=== PATIENT | female | born 1975 | race Caucasian/White ===

== ENCOUNTER 2023-10-11 20:17 | Outpatient (REF) | payer BC, SELFPAY ==
[2023-10-17 11:10] LABS: Age Gdln ACOG Testing Note (.); HPV Aptima Negative (Negative); IGP, Aptima HPV, rfx 16/18,45 Note (.)
== END 2023-10-11 20:18 | disposition home or self-care (01) ==
LOC: LAB 20:17
PROVIDERS: Visit Provider Obstetrics & Gynecology
DX: Z01.419 Encounter for gynecological examination (general) (routine) without abnormal findings (principal)
CPT/HCPCS: 87624; G0145

== ENCOUNTER 2023-12-10 13:57 | Outpatient (OUT) | payer BC, SELFPAY | END 2023-12-10 13:58 | disposition home or self-care (01) | LOC: PST 13:57 | PROVIDERS: Visit Provider Surgery | DX: Z01.818 Encounter for other preprocedural examination (principal); Z12.11 Encounter for screening for malignant neoplasm of colon ==

== ENCOUNTER 2023-12-18 06:18 | Day surgery (SDC) | payer BC, SELFPAY ==
--- OUTSIDE RECORDS SUMMARY | 2023-12-18 06:22 | XMS_ITS | CCD ---
Author Organization [facility] Inform ion Partnership [facility] Care Team Providers Care Sight Effects Specialist Name Role Phone Radha Urbano Primary Care Provider RADHA URBANO Attending Unavailable RADHA URBANO Primary Care Unavailable Radha Urbano Primary Care Provider Radha Urbano Primary Care Provider MD Hilary Cruz Attending Provider Radha Urbano Primary Care Provider Hilary Cruz Attending Unavailable Hilary Cruz Admitting Unavailable ADELIA PAPPAS Attending Unavailable RADHA URBANO Attending Unavailable ADELIA PAPPAS Attending Unavailable JUANITO BRIGGS Attending Unavailable RADHA URBANO Referring Unavailable RADHA URBANO Primary Care Unavailable RADHA URBANO Primary Care Unavailable Problems Active Problems Problem Classification Problem Date Documented Da te Episodic/Chronic Cardiac dysrhythmias (1 source) Palpitations; Translations: [Palpitations] Episodic Conditions associated with dizziness or vertigo (1 source) Dizziness and giddiness; Translations: [Dizziness and giddiness] Episodic Malaise and fatigue (1 source) Fatigue; Translations: [Other fatigue] Episodic Unclassified (1 source) Patient encounter status Unclassified (1 source) Infection following a procedure, superficial incisional surgical site, initial encounter; Translations: [Infection following a procedure, superficial incisional surgical site, initial encounter] Onset: 02-01-2022 Past or Other Problems Problem Classification Problem Date Documented Da te Episodic/Chronic Other screening for suspected conditions (not mental disorders or infectious disease) (3 sources) Patient encounter status; Translations: [Encounter for screening mammogram for malignant neoplasm of breast] Onset: 12-27-2022 Episodic Results Test Name Value Interpretation Reference Range Facility [facility] [place] DIGITAL SCREEN DELVIN Earl 12-28-2022 [facility] [place] DIGITAL SCREEN BILATERAL EXAMINATION: SCREENING DIGITAL BILATERAL MAMMOGRAM WITH TOMOSYNTHESIS, 12/27/2022 TECHNIQUE: Screening mammography was performed with tomosynthesis including MLO and CC views of the bilateral breasts. Computer aided detection was used for the interpretation of this exam. COMPARISON: 02 December 2021; 01 December 2020 HISTORY: Screening. Negative family history of breast cancer. 15 year history of oral contraception. No hormonal replacement therapy or breast interventions. FINDINGS: Breasts are composed of scattered fibroglandular density. No skin thickening, nipple contour changes, suspicious calcifications, suspicious masses, areas of architectural distortion or significant interval changes are noted. IMPRESSION: No evidence of malignancy. Advise annual screening mammography. BI-RADS 1 BIRADS: BIRADS - CATEGORY 1 Negative, no evidence of malignancy. Normal interval follow-up is recommended in 12 months. OVERALL ASSESSMENT - NEGATIVE A letter of notification will be sent to the patient regarding the results. [employer] recommends annual mammograms for women 40 years and older. Interpreted by: Kaitlyn Garay MD Signed by: Kaitlyn Garay MD 12/28/22 Final result Normal [facility] Superficial Wound Cultureon 02-01-2022 Superficial Wound Culture ORGANISM: Staphylococcus aureus (O:STAAUR) Quantity of Growth Rare Growth Aerobic KARINA Charge (PC45) -- SUSCEPTIBILITY - ORGANISM: O:STAAUR ANTIBIOTIC INTERPRETATION KARINA Amoxacillin/K Clavulanate S <4/2 Ampicillin DAKOTA >8 Ampicillin/Sulbactam S <8/4 Azithromycin S <2 Cefazolin S <8 Ceftaroline S <0.5 Ceftriaxone S <8 Ciprofloxacin S <1 Clindamycin S <0.5 Daptomycin S <1 Erythromycin S <0.25 Levofloxacin S <1 Linezolid S <2 Meropenem S <4 Oxacillin S 1 Penicillin DAKOTA >8 Piperacillin/Tazobactam S 8 Rifampin S <1 Tetracycline S <4 Trimethoprim/Sulfametho xazole S <0.5/9.5 Vancomycin S 1 S = SUSCEPTIBLE I = INTERMEDIATE R = RESISTANT BLANK = DATA NOT AVAILABLE, OR DRUG NOT ADVISABLE OR TESTED R* = RESISTANCE DUE TO EXTENDED SPECTRUM BETA-LACTAMASES ESBL = EXTENDED SPECTRUM BETA-LACTAMASE TFG = THYMIDINE-DEPENDENT STRAIN DAKOTA = BETA-LACTAMASE POSITIVE IB = INDUCIBLE BETA-LACTAMASE. APPEARS IN PLACE OF 'S' WITH SPECIES KNOWN TO POSSESS INDUCIBLE BETA-LACTAMASES. POTENTIALLY THEY MAY BECOME RESISTANT TO ALL B-LACTAM DRUGS. PERFORMED BY: [place] [id number] PATHOLOGIST SENIOR WEB ARCHITECT RAMY HU M.D. Normal [facility] Comment on above: Performed By: #### C USUP #### [address] [place] DIGITAL SCREEN BILA TERALOrdered By: Radha Urbano on 12-02-2020 No mammographic evidence of malignancy. BI-RADS 1 BIRADS: BIRADS - CATEGORY 1 Negative, no evidence of malignancy. Normal interval follow-up is recommended in 12 months. OVERALL ASSESSMENT - NEGATIVE A letter of notification will be sent to the patient regarding the results. [employer] recommends annual mammograms for women 40 years and older. [employer] Phone: EXAMINATION: SCREENI NG DIGITAL BILATERAL MAMMOGRAM WITH TOMOSYNTHESIS, 12/01/2020 TECHNIQUE: Screening mammography was performed with tomosynthesis including MLO and CC views of the bilateral breasts. Computer aided detection was used for the interpretation of this exam. COMPARISON: 06/16/2019 HISTORY: Screening. FINDINGS: The breast tissue is composed of scattered fibroglandular tissue. There is no suspicious mass, suspicious microcalcification, or area of architectural distortion. [employer] Phone: [employer] Phone: ECHO Complete 2D W Doppler W ColorOrdered By: Radha Urbano on 09-28-2020 [facility] Transthoracic Echocardiography Report (TTE) Patient Name THOMAS Date of Study 09/28/2020 FRANCHESCA Gaytan Date of 1975 Gender Female Age 44 year(s) Race Room Number Height: 67 inch, 170.18 cm Corporate ID [id number] Weight: 225 pounds, 102.1 kg # Patient Acct [id number] BSA: 2.13 m^2 BMI: 35.24 # kg/m^2 MR # [id number] Home Agent Saira Price Interpreting Physician Jc Antonio Fellow Referring Nurse Radha Urbano, MUSICIAN INSTRUMENTAL Practitioner Interpreting Referring Physician Fellow Type of Study TTE procedure:2D Echocardiogram, M-Mode, Doppler, Color Doppler. Procedure Date Date: 09/28/2020 Start: 08:28 AM Study Location: [facility] Indications:Dizziness. History / Tech. Comments: Dx: dizziness, fatigue, palitations Patient Status: Outpatient Height: 67 inches Weight: 225 pounds BSA: 2.13 m^2 BMI: 35.24 kg/m^2 CONCLUSIONS Summary Global left ventricular systolic function appears preserved with an estimated ejection fraction of 55%. Normal left ventricular wall thickness with a normal left ventricular cavity size. Normal aortic valve structure with trivial aortic regurgitation. Normal tricuspid valve structure with mild tricuspid regurgitation. No previous studies were available for comparison. No significant cardiac cause of dizziness, fatigue, or palpitations was identified from this study. Signature ------- ------- ------- ------- FINDINGS Left Atrium Left atrium is normal in size. Left Ventricle Global left ventricular systolic function appears preserved with an estimated ejection fraction of 55%. Normal left ventricular wall thickness with a normal left ventricular cavity size. Right Atrium Right atrium is normal in size. Right Ventricle Normal right ventricular size and function. Mitral Valve Normal mitral valve structure and function. Aortic Valve Normal aortic valve structure with trivial aortic regurgitation. Tricuspid Valve Normal tricuspid valve structure with mild tricuspid regurgitation. Pulmonic Valve The pulmonic valve is normal in structure. Pericardial Effusion No significant pericardial effusion is seen. Miscellaneous No clear evidence of diastolic dysfunction was identified. Normal aortic root dimension. M-mode / 2D Measurements & Calculations: LVIDd:4.9 cm(3.7 - 5.6 cm) Diastolic Volume:70.95 ml LVIDs:3.15 cm(2.2 - 4.0 cm) Systolic Volume:31.38 ml IVSd:0.92 cm(0.6 - 1.1 cm) Aortic Root:2.61 cm(2.0 - 3.7 cm) LVPWd:0.99 cm(0.6 - 1.1 cm) LA Dimension: 3.93 cm(1.9 - 4.0 cm) Fractional Shortenin.71 % LA volume/Index: 25.8 ml /12m^2 Calculated LVEF (%): 55.77 % AV Cusp Separation: 1.81 cm Mitral: Aortic Valve Area (P1/2-Time): 3.74 cm^2 Peak Velocity: 1.36 m/s Peak E-Wave: 0.99 m/s Mean Velocity: 0.91 m/s Peak A-Wave: 0.75 m/s Peak Gradient: 7.36 mmHg E/A Ratio: 1.33 Mean Gradient: 3.7 mmHg Peak Gradient: 3.92 mmHg Acceleration Time: 93.93 msec P1/2t: 58.75 msec AV VTI: 29.67 cm Tricuspid: Peak TR Velocity: 2.20 m/s Peak TR Gradient: 19.36 mmHg Diastology / Tissue Doppler Lateral Wall E' velocity:0.11 m/s Lateral Wall E/E':7.38 [employer] Phone: Salvatore, Mhpn Incoming Cardio Results From [facility]/Ge - 09/28/2020 12:53 PM EDT [facility] Transthoracic Echocardiography Report (TTE) Patient Name THOMAS Date of Study 09/28/2020 FRANCHESCA Gaytan Date of 1975 Gender Female Age 44 year(s) Race Room Number Height: 67 inch, 170.18 cm Corporate ID [id number] Weight: 225 pounds, 102.1 kg # Patient Acct [id number] BSA: 2.13 m^2 BMI: 35.24 # kg/m^2 MR # [id number] Home Agent Tiago Priceyson Interpreting Physician Jc Antonio Fellow Referring Nurse Radha Urbano CNP Practitioner Interpreting Referring Physician Fellow Type of Study TTE procedure:2D Echocardiogram, M-Mode, Doppler, Color Doppler. Procedure Date Date: 09/28/2020 Start: 08:28 AM Study Location: [facility] Indications:Dizziness. History / Tech. Comments: Dx: dizziness, fatigue, palitations Patient Status: Outpatient Height: 67 inches Weight: 225 pounds BSA: 2.13 m^2 BMI: 35.24 kg/m^2 CONCLUSIONS Summary Global left ventricular systolic function appears preserved with an estimated ejection fraction of 55%. Normal left ventricular wall thickness with a normal left ventricular cavity size. Normal aortic valve structure with trivial aortic regurgitation. Normal tricuspid valve structure with mild tricuspid regurgitation. No previous studies were available for comparison. No significant cardiac cause of dizziness, fatigue, or palpitations was identified from this study. Signature ------ - ------ - ------ - ------ - FINDINGS Left Atrium Left atrium is normal in size. Left Ventricle Global left ventricular systolic function appears preserved with an estimated ejection fraction of 55%. Normal left ventricular wall thickness with a normal left ventricular cavity size. Right Atrium Right atrium is normal in size. Right Ventricle Normal right ventricular size and function. Mitral Valve Normal mitral valve structure and function. Aortic Valve Normal aortic valve structure with trivial aortic regurgitation. Tricuspid Valve Normal tricuspid valve structure with mild tricuspid regurgitation. Pulmonic Valve The pulmonic valve is normal in structure. Pericardial Effusion No significant pericardial effusion is seen. Miscellaneous No clear evidence of diastolic dysfunction was identified. Normal aortic root dimension. M-mode / 2D Measurements & Calculations: LVIDd:4.9 cm(3.7 - 5.6 cm) Diastolic Volume:70.95 ml LVIDs:3.15 cm(2.2 - 4.0 cm) Systolic Volume:31.38 ml IVSd:0.92 cm(0.6 - 1.1 cm) Aortic Root:2.61 cm(2.0 - 3.7 cm) LVPWd:0.99 cm(0.6 - 1.1 cm) LA Dimension: 3.93 cm(1.9 - 4.0 cm) Fractional Shortenin.71 % LA volume/Index: 25.8 ml /12m^2 Calculated LVEF (%): 55.77 % AV Cusp Separation: 1.81 cm Mitral: Aortic Valve Area (P1/2-Time): 3.74 cm^2 Peak Velocity: 1.36 m/s Peak E-Wave: 0.99 m/s Mean Velocity: 0.91 m/s Peak A-Wave: 0.75 m/s Peak Gradient: 7.36 mmHg E/A Ratio: 1.33 Mean Gradient: 3.7 mmHg Peak Gradient: 3.92 mmHg Acceleration Time: 93.93 msec P1/2t: 58.75 msec AV VTI: 29.67 cm Tricuspid: Peak TR Velocity: 2.20 m/s Peak TR Gradient: 19.36 mmHg Diastology / Tissue Doppler Lateral Wall E' velocity:0.11 m/s Lateral Wall E/E':7.38 [employer] Phone: Dermatopathologyon 0 Dermatopathology [facility] Dermatopathology Laboratory [address] [place] [id number] DERMATOPATHOLOGY REPORT Name:FRANCHESCA GUZMAN. Rec #. [id number] Location: [facility] Date of Procedure: 01/12/2020 Race: Date Received: 01/15/2020 /Sex: 1975 (Age: 44) / F Date Reported: 01/16/2020 Other: Submitting Physician:JOE DUMONT PA-C FINAL DIAGNOSIS SKIN, R FOREARM, BIOPSY: COMPOUND NEVUS, PRESENT ON THE DEEP MARGIN. Electronically Signed Out by FARZAD GRAHAM M.D. Electronically Signed Out By FARZAD GRAHAM MD/[facility] By the signature on this report, the individual or group listed as making the Final Interpretation/Diagnosi s certifies that they have reviewed this case. Clinical History: 0.6 x 0.6 cm. Atypical Nevus. Biopsy. Specimens Submitted As: A: SKIN, R FOREARM Gross Description: Received in formalin is one [place]-brown piece of skin measuring [id number]. The specimen is inked and embedded in toto. [facility]/01/15/2020 Microscopic Description: Microscopic analysis shows a symmetric proliferation of melanocytes in epidermis and dermis. Melanocytes nest regularly along the dermal-epidermal junction, and dermal melanocytes mature with increasing depth in dermis. The melanocytes show no cytologic atypia. Normal [facility] Comment on above: Performed By: #### D #### Dermatopathology [facility] DIGITAL DIAGNOSTIC W OR WO CAD RIGHTOrdered By: Adela Bejarano on 06-27-2019 Summation artifact accounts for the focal asymmetry seen at screening. No follow-up is recommend. BIRADS: BIRADS - CATEGORY 1 Negative, no evidence of malignancy. Normal interval follow-up is recommended in 12 months. OVERALL ASSESSMENT - NEGATIVE A letter of notification will be sent to the patient regarding the results. [employer] recommends annual mammograms for women 40 years and older. [employer] Phone: EXAMINATION: DIAGNOS TIC DIGITAL RIGHT BREAST MAMMOGRAM 06/27/2019 TECHNIQUE: Diagnostic mammography of the right breast was performed with tomosynthesis. Computer aided detection was utilized in the interpretation of this exam. VIEWS: Right ML, right spot CC, right spot MLO COMPARISON: 06/16/2019 HISTORY: Focal asymmetry in the right breast at baseline screening FINDINGS: The breast is almost entirely fatty. Asymmetries seen laterally and slightly superiorly at anterior to mid depth disperse into glandular tissue with spot compression and have no correlates on the ML view. No new dominant masses, suspicious calcifications, nor areas of architectural distortion are seen. Tomosynthesis images demonstrate no suspicious abnormality. [employer] Phone: Salvatore, pn Incoming Radiant Results From [employer] - 06/27/2019 9:58 AM EST EXAMINATION: DIAGNOSTIC DIGITAL RIGHT BREAST MAMMOGRAM 06/27/2019 TECHNIQUE: Diagnostic mammography of the right breast was performed with tomosynthesis. Computer aided detection was utilized in the interpretation of this exam. VIEWS: Right ML, right spot CC, right spot MLO COMPARISON: 06/16/2019 HISTORY: Focal asymmetry in the right breast at baseline screening FINDINGS: The breast is almost entirely fatty. Asymmetries seen laterally and slightly superiorly at anterior to mid depth disperse into glandular tissue with spot compression and have no correlates on the ML view. No new dominant masses, suspicious calcifications, nor areas of architectural distortion are seen. Tomosynthesis images demonstrate no suspicious abnormality. IMPRESSION: Summation artifact accounts for the focal asymmetry seen at screening. No follow-up is recommend. BIRADS: BIRADS - CATEGORY 1 Negative, no evidence of malignancy. Normal interval follow-up is recommended in 12 months. OVERALL ASSESSMENT - NEGATIVE A letter of notification will be sent to the patient regarding the results. [employer] recommends annual mammograms for women 40 years and older. [employer] Phone: [facility] DIGITAL SCREEN W OR WO C AD BILATERALOrdered By: Adela Bejarano on 06-16-2019 Focal asymmetry oute r central right breast requiring additional mammographic workup. Full workup may require ultrasonography. BI-RADS 0 BIRADS: BIRADS - CATEGORY 0 Additional imaging is recommended at this time. OVERALL ASSESSMENT - INCOMPLETE:NEED ADDITIONAL IMAGING EVALUATION. [employer] Phone: EXAMINATION: BILATER AL DIGITAL SCREENING MAMMOGRAM, 06/16/2019 TECHNIQUE: CC and MLO views of the left and right breasts were obtained. Computer aided detection was utilized in the interpretation of this exam. 3D tomosynthesis images were obtained. COMPARISON: None. Baseline study. HISTORY: Screening. Negative family history of breast cancer. Oral contraceptive usage x7 years. No prior breast interventions. FINDINGS: The breasts are composed of scattered fibroglandular densities. A focal asymmetry is present in the outer central right breast middle depth with additional mammographic workup advised. Full workup may require ultrasonography. No skin thickening, nipple contour changes, or malignant type microcalcifications are noted. [employer] Phone: Salvatore, Mhpn Incoming Radiant Results From [employer] - 06/16/2019 6:12 PM EST EXAMINATION: BILATERAL DIGITAL SCREENING MAMMOGRAM, 06/16/2019 TECHNIQUE: CC and MLO views of the left and right breasts were obtained. Computer aided detection was utilized in the interpretation of this exam. 3D tomosynthesis images were obtained. COMPARISON: None. Baseline study. HISTORY: Screening. Negative family history of breast cancer. Oral contraceptive usage x7 years. No prior breast interventions. FINDINGS: The breasts are composed of scattered fibroglandular densities. A focal asymmetry is present in the outer central right breast middle depth with additional mammographic workup advised. Full workup may require ultrasonography. No skin thickening, nipple contour changes, or malignant type microcalcifications are noted. IMPRESSION: Focal asymmetry outer central right breast requiring additional mammographic workup. Full workup may require ultrasonography. BI-RADS 0 BIRADS: BIRADS - CATEGORY 0 Additional imaging is recommended at this time. OVERALL ASSESSMENT - INCOMPLETE:NEED ADDITIONAL IMAGING EVALUATION. [facility] Work Phone: Encounters Encounter Date Encounter Type Care Provider Facility Start: 01-17-2024 ambulatory RADHA URBANO [facility] Start: 11-07-2023 End: 11-07-2023 ambulatory JUANITO CHESTER Not Available Start: 10-11-2023 End: 10-11-2023 ambulatory ADELIA ELYSE Not Available Start: 07-30-2023 End: 07-30-2023 ambulatory RADHA Vandana JAY Not Available Start: 06-12-2023 End: 06-12-2023 ambulatory ADELIA ELYSE Not Available Start: 12-27-2022 End: 12-29-2022 ambulatory [facility] Start: 02-07-2022 End: 02-07-2022 Subsequent hospital visit by physician Radha Urbano Work Phone: [facility] Start: 02-01-2022 End: 02-01-2022 ambulatory Hilary Cruz Facility:[facility] Start: 02-01-2022 End: 02-01-2022 Departed Referred MD Hilary Cruz Work Phone: [facility] [place] Start: 12-01-2020 End: 12-03-2020 Patient encounter status [facility] Mammography Start: 12-01-2020 End: 12-03-2020 Subsequent hospital visit by physician [facility] Mammography Room At [facility] Mammography Comment on above: Breast cancer screen ing by mammogram; Routine medical exam Start: 09-28-2020 End: 09-28-2020 Subsequent hospital visit by physician [facility] Echo Room [facility] Echocardiography Comment on above: Fatigue, unspecified type; Dizziness and giddiness; Palpitations Start: 07-15-2020 Patient encounter procedure RADHA URBANO Facility:[facility] Start: 05-17-2020 End: 05-17-2020 Subsequent hospital visit by physician Zeke Covid Screening Schedule [facility] Covid Screening Comment on above: Arrived Start: 06-27-2019 End: 06-29-2019 Subsequent hospital visit by physician Ismael Gen Radiologist [facility] Mammography Comment on above: Abnormal mammogram Start: 06-16-2019 End: 06-18-2019 Subsequent hospital visit by physician Ismael [facility] Mammography Comment on above: Breast cancer screen ing by mammogram Procedures Date Procedure Procedure Detail Performing Clinician Start: 12-01-2020 Screening mammograph y bi 2-view breast inc cad Radha Urbano Work Phone: Start: 09-28-2020 Echo tthrc r-t 2d w/wom-mode compl spec&colr d Radha Urbano Work Phone: Start: 06-27-2019 Tomosynthesis, mammo Ge rri L Rine Work Phone: Start: 06-16-2019 Screening digital br east tomosynthesis bi Adela L Rine Work Phone: Plan of Treatment Date Care Activity Detail Author Start: 02-02-2022 Influenza vaccination Flu vaccine (# 1) [facility] [employer] Start: 02-02-2021 Influenza vaccination M [facility] Work Phone: Start: 12-01-2020 End: 12-01-2020 Patient encounter procedure 12/01/2020 Appointment Radiology [facility] Mammography Start: 02-03-2020 Influenza vaccination Flu vaccine (# 1) [place] [place] Start: 06-27-2019 End: 06-27-2019 Patient encounter procedure [facility] [place] [facility]amm[facility] Start: 02-02-2019 Influenza vaccination Flu vaccine (# 1) [place] Work Phone: Start: 2017 Lipid panel [facility] [employer] Start: 2017 Lipid screen Lipid screen [facility] Work Phone: Start: 12-20-2007 Screening for malignant neoplasm of cervix [facility] [employer] Start: 1998 Cervical cancer screen Cervical cancer screen [employer] Phone: Start: 1998 Screening for malignant neoplasm of cervix [facility] [employer] Start: 1996 DTaP/Tdap/Td vaccine (1 - Tdap) DTaP/Tdap/Td vaccine (1 - Tdap) [facility] [employer] Start: 12-20-1995 Hepatitis C screening Hepatitis C sc reen [facility] [employer] Start: 1993 COVID-19 Vaccine (1) COVID-19 Vaccin e (1) [employer] Phone: Start: 1992 [facility] [employer] Phone: Start: 1992 HIV screening [facility] [employer] Start: 1989 COVID-19 Vaccine (1) COVID-19 Vaccin e (1) [employer] Phone: Start: 1989 Depression Screen Depression Screen [facility] [employer] Start: 1988 DTaP/Tdap/Td vaccine (1 - Tdap) DTaP/Tdap/Td vaccine (1 - Tdap) [employer] Phone: Start: 06-21-1978 COVID-19 Vaccine (#1) COVID-19 Vacci ne (#1) [facility] [employer] Start: 1977 Hepatitis C screening Hepatitis C sc reen [employer] Phone: Aerobic microbial culture Superficial Wound Culture [facility] End: 05-17-2020 Covid-19 Ambulatory Covid-19 Ambulatory Lab Routine Once for 1 Occurrences starting 05/17/2020 until 05/17/2020 [place] [place] Comment on above: Once for 1 Occurrenc es starting 05/17/2020 until 05/17/2020 Covid-19 Ambulatory Covid-19 Amb ulatory Lab Routine 05/17/2020 1:56 PM EST [place] [place] End: 02-07-2022 Culture, Wound [facility] [employer] Phone: Comment on above: Once for 1 Occurrenc es starting 02/07/2022 until 02/07/2022 Echo tthrc r-t 2d w/wo m-mode complete rest&st ECHO REPORT Echocardiography Ordered: 09/28/2020 [employer] Phone: Comment on above: Ordered: 09/28/2020 Payers Date Payer Category Payer Unknown [id number] 2022 Self-pay 2020 Unknown 2019 Unknown BC[place] P PO [id number] 2019-Present [address] [place] [address] [id number] 2019 Unknown [id number] 2017 Unknown [place] P PO xxxxxxxxxxxx 2017-Present [address] [place] [address] xxxxxxxxxxxx [id number] 1975 Unknown [id number] 1975 Unknown [id number] 1975 Unknown [id number] 1975 Unknown [id number] 1977 Unknown [id number] 9 1975 Unknown [id number] 1975 Unknown [id number] Unknown [id number] Social History Date Type Detail Facility Tobacco smoking stat [facility] Unknown if ever smoked [employer] [facility]: Start: 1975 Sex Assigned At Not on file [facility] [place] Phone: Start: 12-01-2020 Tobacco smoking stat [facility] Unknown if ever smoked [employer]: Exposure to SARS-CoV -2 (event) Not sure [place] Start: 1975 Sex Assigned At Female F [facility] History of Present illness Narrative 09-28-2020 Saira Price - 09/28/2020 8:30 AM EDT Note Date & Type Note Facility 09-28-2020 History of Present illness Narrative Explained policies and procedures of an echocardiogram/Doppler study. documented in this encounter [employer]: Evaluation note Note Date & Type Note Facility Evaluation note Diagnosis Fatigue, unspecified type Dizziness and giddiness Palpitations documented in this encounter [employer]: Evaluation note Note Date & Type Note Facility Evaluation note Diagnosis Breast cancer screening by mammogram Routine medical exam Routine general medical examination at a health care facility documented in this encounter [employer]: Evaluation note Note Date & Type Note Facility Evaluation note Diagnosis Breast cancer screening by mammogram documented in this encounter [employer]: Evaluation note Note Date & Type Note Facility Evaluation note Diagnosis Abnormal mammogram Abnormal mammogram, unspecified documented in this encounter [employer]: Evaluation note Note Date & Type Note Facility Evaluation note No assessment information availa [facility] Work Phone: Summary Purpose Family History No Family History Records FoundNo Family History Records FoundNo Family History Records FoundNo Family History Records FoundNo Family History Records FoundNo Family History Records Found Advance Directives No Advanced Directives Records FoundDocuments on File Type Date Recorded Patient Diving Fisher Expl anation ACP-Advance Directive ACP-Power of Head Of Talent Management Documents on File Type Date Recorded Patient Diving Fisher Expl anation ACP-Advance Directive ACP-Power of Head Of Talent Management Documents on File Type Date Recorded Patient Diving Fisher Expl anation Advance Directives and Living Will Power of Head Of Talent Management Advance Directive Response Recorded Date/ Time Advance Directives No February 1:53pm Reason for Referral Status Reason Specialty Diagnoses / Procedures Referre d By Contact Referred To Contact Closed Cardiology Diagnoses Fatigue, unspecified type Dizziness and giddiness Palpitations Procedures ECHO Complete 2D W Doppler W Color Radha Urbano [address] [place] [id number] Status Reason Specialty Diagnoses / Procedures Referred By Contact Referred To Contact Closed Radiology Diagnoses Breast cancer screening by mammogram Routine medical exam Procedures KIMBERLY [place] DIGITAL SCREEN BILATERAL [facility] Radha [address] [place] [address] Status Reason Specialty Diagnoses / Procedures Referred By Contact Referred To Contact Authorized Radiology Diagnoses Breast cancer screening by mammogram Procedures KIMBERLY DIGITAL SCREEN W OR WO CAD BILATERAL Rine, Adela L [address] [place] [address] Status Reason Specialty Diagnoses / Procedures Referred By Contact Referred To Contact Authorized Radiology Diagnoses Abnormal mammogram Procedures KIMBERLY DIGITAL DIAGNOSTIC W OR WO CAD RIGHT Rine, Adela L [address] [place] [address] Chief Complaint and Reason for Visit Chief Complaint [id number] Additional Source Comments INFORMATION SOURCE (unrecogn ized section and content) DATE CREATED AUTHOR 01/17/2020 [facility] DATE CREATED AUTHOR AUTHOR'S ORGANIZ ATION 07/17/2020 [facility] DATE CREATED AUTHOR AUTHOR'S ORGANIZ ATION 02/10/2022 [facility] DATE CREATED AUTHOR AUTHOR'S ORGANIZ ATION 03/05/2022 [facility] DATE CREATED AUTHOR AUTHOR'S ORGANIZ ATION 11/08/2023 [facility] DATE CREATED AUTHOR AUTHOR'S ORGANIZ ATION 12/11/2023 [facility] Reason for Visit (unrecogniz ed section and content) Status Reason Specialty Diagnoses / Procedures Referre d By Contact Referred To Contact Closed Cardiology Diagnoses Fatigue, unspecified type Dizziness and giddiness Palpitations Procedures ECHO Complete 2D W Doppler W Color Radha Urbano [address] [place] [id number] Status Reason Specialty Diagnoses / Procedures Referred By Contact Referred To Contact Open Radiology Diagnoses Encounter for screening mammogram for malignant neoplasm of breast Procedures HC MAMMO SCREENING INCL CAD IF PERF Radha Urbano [address] [place] [phone] [place] [phone] Status Reason Specialty Diagnoses / Procedures Referre d By Contact Referred To Contact Open Radiology Diagnoses Encounter for screening mammogram for malignant neoplasm of breast Procedures HC MAMMO SCREENING INCL CAD IF PERF Rine, Adela L [address] [place] [address] [place] [phone] Status Reason Specialty Diagnoses / Procedures Referre d By Contact Referred To Contact Open Radiology Diagnoses Other abnormal and inconclusive findings on diagnostic imaging of breast Procedures HC MAMMO DGX UNILATERAL INCL CAD IF PERF Rine, Adela L [address] [place] [phone] [place] [phone] Care Teams (unrecognized sec tion and content) Team Status: Inactive Member Role Status Dates Hilary Cruz MD Attending Provider Active Sight Effects Specialist Relationship Specialty Start Date End Date Radha Urbano PCP - General Nurse Practitioner 08/30/18 Goals (unrecognized section and content) Goals may be documented in a n alternate section FOR RECORDS PERTAINING TO PATIENTS WHO ARE OR HAVE BEEN ENROLLED IN A CHEMICAL DEPENDENCY/SUBSTANCEABUSE PROGRAM, SOME INFORMATION MAY BE OMITTED. This clinical summary was aggregated from multiple sources. Caution should be exercised in using it in the provision of clinical care. This summary normalizes information from multiple sources, and as a consequence, information in this document may materially change the coding, format and clinical context of patient data. In addition, data may be omitted in some cases. CLINICAL DECISIONS SHOULD BE BASED ON THE PRIMARY CLINICAL RECORDS. [employer] [facility]. provides no warranty or guarantee of the accuracy or completeness of information in this document.
[2023-12-18 06:30] VITALS: BMI 37.2
[2023-12-18 06:54] LABS: HCG Qualitative NEGATIVE (NEGATIVE); Internal Control Within Normal Limits
[2023-12-18] MEDS: LACTATED RINGER'S SOLUTION 1,000 ML 50 ML IV (07:01)
--- NOTE | 2023-12-18 07:27 | W.PM.PROCNOT ---
Date of procedure: 12/18/23 Pre-op diagnosis: screening colonoscopy Post-op diagnosis: other (polypectomy at 20cm and 10cm ) Procedure: Previous colonoscopy: never procedure: screening colonoscopy The patient was given IV conscious sedation.? The patient's SPO2 remained above 90% throughout the procedure. The colonoscope was inserted per rectum and advanced under direct vision to the cecum without difficulty.? The prep was good.? Findings: Terminal ileum os: normal Cecum/Ascending colon: normal Transverse colon: normal Descending/Sigmoid colon: small subcentimeter polyp removed via biopsy forcep at 20cm Rectum/Anus: examined in normal and retroflexed positions, snare polypectomy at 10cm for a 1cm sized polyp Withdrawal Time was (minutes): 15 The colon was decompressed and the scope was removed.? The patient tolerated the procedure well. Recommendations/Plan: 1.? Lifestyle and dietary modifications as discussed 2.? F/U Biopsies 3.? F/U in 5-10 years for repeat c-scope pending biopsy results 4.? Discussed with the family Anesthesia: MAC Surgeon: Jeff Ventura Estimated blood loss (mL): 3 Pathology: other (2 polyps, one at 20cm and another at 10cm) Condition: stable Disposition: PACU
[2023-12-18 08:05] VITALS: BP 109/64; PULSE 67; O2SAT 98
[2023-12-18 08:20] VITALS: BP 158/97; PULSE 56; O2SAT 100
[2023-12-18 08:45] VITALS: BP 175/98; PULSE 53; O2SAT 100
== END 2023-12-18 08:45 | disposition home or self-care (01) ==
PROVIDERS: Anesthesiology; Visit Provider Surgery
PROC: (CPT 811; principal; 2023-12-18 07:30)
DX: Z12.11 Encounter for screening for malignant neoplasm of colon (principal); D12.5 Benign neoplasm of sigmoid colon; D12.8 Benign neoplasm of rectum
CPT/HCPCS: 45380; 45385; 36415; 84703; 88305; J2704

== ENCOUNTER 2024-10-21 19:22 | Outpatient (REF) | payer BC, SELFPAY ==
--- OUTSIDE RECORDS SUMMARY | 2024-10-21 19:27 | XMS_ITS | CCD ---
Author Organization [facility] Care Team Providers Care Welfare Eligibility Interviewer Name Role Phone Radha Urbano Primary Care Provider RADHA URBANO Attending Unavailable RADHA URBANO Primary Care Unavailable Sundeep Radha Primary Care Provider Sundeep Radha Primary Care Provider [phone] MD Hilary Cruz Attending Provider Radha Urbano Primary Care Provider DO Juanito Ventura Attending Provider Juanito Ventura Attending Unavailable Juanito Ventura Admitting Unavailable RADHA URBANO Primary Care Unavailable SUNDEEP RADHA Referring Unavailable Moi Cabrera DO Primary Care Provider [phone] Sundeep 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Radha Unavailable FRUMOUNA, RADHA E Attending Unavailable SUNDEEP, RADHA E Attending Unavailable ADELIA ARCE Attending Unavailable JUANITO VENTURA Attending Unavailable PRETTY DUMONT Attending Unavailable FRUTH, RADHA E Attending Unavailable FRUTH, RADHA E Attending Unavailable Allergies Allergy Classification Reported Allergen(s) Allergy Type Date of Onset Reaction(s) Facility (14 sources) Cefaclor Drug Allergy 03-20-20 GI intolerance [facility] (14 sources) Doxycycline Drug Allergy 03-20-20 [facility] (14 sources) Sulfamethoxazole Allergy to substance 03-20-20 [facility] (14 sources) Trimethoprim Drug Allergy 03-20-20 [facility] (14 sources) Wound Dressing Adhesive Drug Allergy 03-20-20 21 [facility] Medications Current Medications Medication Drug Class(es) Dates Sig (Normalized) Sig (Original) ALPRAZolam 0.5 mg oral tablet (15 sources) Benzodiazepine Start: 01-28-20 End: 08-24-19 ALPRAZolam (Xanax) 0.5 MG tablet Indications: Caregiver stress Take 1 tablet (0.5 mg) by mouth as needed at bedtime for anxiety 30 tablet 07/24/2024 Active amLODIPine 5 mg oral tablet (13 sources) Dihydropyridine Calcium Channel Lachelle Start: 01-28-20 End: 01-28-20 take 1 tablet by mouth once daily amLODIPine (Norvasc) 5 MG tablet Indications: Essential hypertension (CMS/HCC) Take 1 tablet (5 mg) by mouth Daily 30 tablet 11 01/28/2024 01/27/2025 Active amoxicillin 500 mg oral capsule (1 source) Penicillin-class Antibacterial Start: 07-25-19 End: 08-09-19 take 2 capsules by mouth once in the morning amoxicillin (Amoxil) 500 MG capsule Indications: H pylori ulcer Take 2 capsules (1,000 mg) by mouth in the morning and 2 capsules (1,000 mg) before bedtime. Do all this for 14 days. 56 capsule 07/25/2024 08/08/2024 Active clarithromycin 500 mg oral tablet (1 source) Macrolide Antimicrobial Start: 07-25-19 End: 08-09-19 take 1 tablet by mouth once in the morning clarithromycin (Biaxin) 500 MG tablet Indications: H pylori ulcer Take 1 tablet (500 mg) by mouth in the morning and 1 tablet (500 mg) before bedtime. Do all this for 14 days. 28 tablet 07/25/2024 08/08/2024 Active dextromethorphan hydrobromide 3 mg/ml / promethazine hydrochloride 1.25 mg/ml oral solution (3 sources) Phenothiazine, Uncompetitive P-hmdpxn-W-asparta te Receptor Antagonist, Sigma-1 Agonist Start: 08-13-19 promethazine-dextromet horphan (Phenergan-DM) 6.25-15 MG/5ML syrup Indications: Acute cough Take 5 mL by mouth every 4 (four) hours if needed for cough 240 mL 08/12/2024 Active hydroCHLOROthiazide 12.5 mg oral tablet (10 sources) Thiazide Diuretic Start: 08-21-19 take 1 tablet by mouth once daily hydroCHLOROthiazide (HYDRODiuril) 12.5 MG tablet Indications: Essential hypertension (CMS/HCC) TAKE 1 TABLET BY MOUTH EVERY DAY 90 tablet 1 08/20/2024 Active Start: 02-26-2024 take 1 tablet by obed once daily hydroCHLOROthiazide (HYDRODiuril) 12.5 MG tablet Indications: Essential hypertension (CMS/HCC) Take 1 tablet (12.5 mg) by mouth Daily 90 tablet 1 02/26/2024 Active levonorgestrel 0.442895 mg/hr intrauterine system (20 sources) Progestin, Progestin-containing Intrauterine Device Start: 06-12-2023 Levonorgestrel intrauterine device Levonorgestrel ( Mirena, 52 MG,) 20 MCG/DAY intrauterine device Mirena Active lidocaine 30 mg/ml topical cream (11 sources) Antiarrhythmic, Amide Local Anesthetic Start: 07-31-2023 Lidocaine 3 % cream Indications: Herpes simplex of female genitalia Apply 1 Application topically 4 (four) times a day as needed (pain of genitals) 85 g 1 07/31/2023 Active ondansetron 4 mg disintegrating oral tablet (6 sources) Serotonin-3 Receptor Antagonist Start: 07-24-2024 take 1 tablet by mouth every eight hours for nausea ondansetron ODT (Zofran-ODT) 4 MG disintegrating tablet Indications: Epigastric pain Take 1 tablet (4 mg) by mouth every 8 (eight) hours if needed for nausea or vomiting 60 tablet 07/24/2024 Active pantoprazole 40 mg delayed release oral tablet (6 sources) Proton Pump Inhibitor Start: 07-24-2024 End: 07-24-2025 take 1 tablet by mouth before mealtime pantoprazole (Protonix) 40 MG EC tablet Indications: Epigastric pain Take 1 tablet (40 mg) by mouth in the morning. Take before meals. Do not crush, chew, or split.. 30 tablet 11 07/24/2024 07/24/2025 Active 24 hr phentermine 3.75 mg / topiramate 23 mg extended release oral capsule (6 sources) Sympathomimetic Amine Anorectic Start: 09-20-2023 End: 02-26-2024 take 1 tablet by mouth once daily Phentermine-Topira mate (Qsymia) 3.75-23 MG capsule sustained-release 24 hr Indications: BMI 37.0-37.9, adult Take 1 tablet by mouth Daily 30 capsule 1 09/20/2023 02/26/2024 Discontinued (Therapy completed) predniSONE 20 mg oral tablet (4 sources) Start: 02-27-2024 End: 07-24-2024 predniSONE (Deltasone) 20 MG tablet Indications: Right ear pain Take 3 tablets for 2 days THEN 2 tablets for 2 days THEN 1 tablet for 2 days 12 tablet 02/27/2024 07/24/2024 Discontinued (Therapy completed) sucralfate 1000 mg oral tablet (6 sources) Aluminum Complex Start: 07-24-2024 End: 07-24-2025 take 1 tablet by mouth at bedtime sucralfate (Carafate) 1 g tablet Indications: Epigastric pain Take 1 tablet (1 g) by mouth in the morning and 1 tablet (1 g) at noon and 1 tablet (1 g) in the evening and 1 tablet (1 g) before bedtime. Take before meals. 120 tablet 11 07/24/2024 07/24/2025 Active SUMAtriptan 100 mg oral tablet (14 sources) Serotonin-1b and Serotonin-1d Receptor Agonist Start: 07-30-2023 take 0.5 tablet by mouth once SUMAtriptan (Imitrex) 100 MG tablet Indications: Migraine without aura and without status migrainosus, not intractable (CMS/HCC) Take 0.5 tablets (50 mg) by mouth 1 (one) time if needed for migraine 9 tablet 11 07/30/2023 Active ubrogepant 100 mg oral tablet (14 sources) Start: 09-20-2023 take 1 tablet by mouth once daily as needed Ubrogepant (Ubrelvy) 100 MG tablet Indications: Migraine without aura and without status migrainosus, not intractable (CMS/HCC) Take 1 tablet by mouth Daily as needed (migraine) 10 tablet 3 09/20/2023 Active valACYclovir 500 mg oral tablet (14 sources) Herpesvirus Nucleoside Analog DNA Polymerase Inhibitor, Herpes Simplex Virus Nucleoside Analog DNA Polymerase Inhibitor, Herpes Zoster Virus Nucleoside Analog DNA Polymerase Inhibitor Start: 08-13-2024 take 1 tablet by mouth once daily valACYclovir (Valtrex) 500 MG tablet Indications: Herpes simplex of female genitalia TAKE 1 TABLET BY MOUTH EVERY DAY 90 tablet 08/13/2024 Active Start: 11-19-2023 take 1 tablet by obed th once daily valACYclovir (Valtrex) 500 MG tablet Indications: Herpes simplex of female genitalia Take 1 tablet (500 mg) by mouth Daily 90 tablet 11/19/2023 Active Problems Active Problems Problem Classification Problem Date Documented Da te Episodic/Chronic Abdominal pain (2 sources) Epigastric pain; Translations: [Epigastric pain] 07-24-2024 Episodic Administrative/social admission (4 sources) Caregiver role strain; Translations: [Dependent relative needing care at home] 01-28-2024 Episodic Anxiety disorders (14 sources) Acute stress disorder; Translations: [Acute stress reaction] Onset: 07-30-2023 07-30-2023 Chronic Cardiac dysrhythmias (1 source) Palpitations; Translations: [Palpitations] Episodic Conditions associated with dizziness or vertigo (1 source) Dizziness and giddiness; Translations: [Dizziness and giddiness] Episodic Essential hypertension (4 sources) Essential hypertension; Translations: [Essential (primary) hypertension] 01-28-2024 Chronic Gastroduodenal ulcer (except hemorrhage) (1 source) Peptic ulcer; Translations: [Peptic ulcer, site unspecified, unspecified as acute or chronic, without hemorrhage or perforation] 07-25-2024 Chronic Headache; including migraine (14 sources) Migraine without aura, not refractory ; Translations: [Migraine without aura, not intractable, without status migrainosus] Onset: 07-30-2023 07-30-2023 Chronic Malaise and fatigue (1 source) Fatigue; Translations: [Other fatigue] Episodic Menstrual disorders (14 sources) Amenorrhea; Translations: [Amenorrhea, unspecified] Onset: 07-30-2023 07-30-2023 Chronic Nutritional deficiencies (14 sources) Vitamin D deficiency; Translations: [Vitamin D deficiency, unspecified] Onset: 07-30-2023 07-30-2023 Chronic Other ear and sense organ disorders (1 source) Otalgia, right ear; Translations: [Otalgia, unspecified] 02-27-2024 Episodic Other nutritional; endocrine; and metabolic disorders (14 sources) Obese class I; Translations: [Obesity, unspecified] Onset: 07-30-2023 07-30-2023 Chronic Other nutritional; endocrine; and metabolic disorders (2 sources) Obesity caused by energy imbalance; Translations: [Morbid (severe) obesity due to excess calories] 02-26-2024 Chronic Other nutritional; endocrine; and metabolic disorders (2 sources) Body mass index 30+ - obesity; Translations: [Body mass index (BMI) 37.0-37.9, adult] 02-26-2024 Chronic Other screening for suspected conditions (not mental disorders or infectious disease) (3 sources) Patient encounter status; Translations: [Encounter for screening mammogram for malignant neoplasm of breast] Onset: 01-17-2024 Episodic Residual codes; unclassified (14 sources) Sleep apnea; Translations: [Sleep apnea, unspecified] Onset: 07-30-2023 07-30-2023 Chronic Unclassified (1 source) Patient encounter status Past or Other Problems Problem Classification Problem Date Documented Da te Episodic/Chronic Other connective tissue disease (14 sources) Calcaneal spur of left foot; Translations: [Calcaneal spur, left foot] Onset: 07-30-2023 07-30-2023 Episodic Other connective tissue disease (14 sources) Plantar fascial fibromatosis; Translations: [Plantar fascial fibromatosis] Onset: 07-30-2023 07-30-2023 Episodic Other connective tissue disease (14 sources) Pain in limb; Translations: [Pain in unspecified limb] Onset: 07-30-2023 Resolved: 07-30-2023 07-30-2023 Episodic Other gastrointestinal disorders (14 sources) Constipation; Translations: [Constipation, unspecified] Onset: 07-30-2023 07-30-2023 Episodic Results Test Name Value Interpretation Reference Range Facility [facility] [place] DIGITAL SCREEN SELF REFERRAL W OR WO CAD BILATERALon 01-17-2024 [facility] [place] DIGITAL SCREEN SELF REFERRAL W OR WO CAD BILATERAL EXAMINATION: SCREENING DIGITAL BILATERAL MAMMOGRAM WITH TOMOSYNTHESIS, 01/17/2024 TECHNIQUE: Screening mammography of the bilateral breasts was performed with tomosynthesis. 2D standard and 3D tomosynthesis combination imaging performed through both breasts in the MLO and CC projection. Computer aided detection was utilized in the interpretation of this exam. COMPARISON: 27 December 2022; 02 December 2021 HISTORY: Screening. Negative family history of breast cancer. 17 year history of oral contraception. No hormonal replacement therapy or breast interventions. FINDINGS: Both breasts are composed of scattered fibroglandular density. No [...] to the patient regarding the results. The [employer] recommends annual mammograms for women 40 years and older. Interpreted by: Kaitlyn Garay MD Signed by: Kaitlyn Garay MD 01/17/24 Final result Normal [facility] 12-18-2023 L Specimen: [id number] Received: 12/18/23 Status: RACHAEL Kaur Num: [id number] Spec Type: Surgical Subm Dr: Juanito Ventura DO Tissues: A Colon Biopsy (POLYP 20 CM) B Colon Biopsy (POLYP 12 CM) Procedures: HE/4, Gross/Micro L4/2 Age/ Patient Sex Location Account Attending Physician Jessa Guzman 47/F LABELL [id number] Juanito Ventura DO SPEC NUM: [id number] RECD: 12/18/23 STATUS: RACHAEL KAUR NUM: [id number] MICHAELA: 12/18/[address]: Juanito Ventura DO ENTERED: 12/18/[address] [facility] [address]: Ursula Lisa SPEC TYPE: Surgical DEPT: JAYDEN KOCH ORDERED: HE/4, Gross/Micro L4/2 ORDERED: HE/4, Gross/Micro L4/2 Pathological Diagnosis A, sigmoid polyp biopsy at 20 cm: -Small tubular adenoma B, sigmoid polyp removal at the 12 cm: -Tubulovillous adenoma without obvious high-grade features (advanced adenoma) Clinical Information Sigmoid polyp at 20 cm and 12 cm. Gross Description Received are 2 formalin filled containers each labeled with the patient's name, date of and specific specimen site. A. Further labeled sigmoid polyp 20cm is a 0.3 x 0.3 x 0.1 cm [place] polypoid tissue fragment, entirely submitted in A1. B. Further labeled sigmoid polyp 12 cm is a 1.0 x 0.7 x 0.6 cm [place] polypoid tissue fragment. The specimen is inked black along its base, trisected and entirely submitted in B1. Specimen: [id number] Received: 12/18/23 Status: RACHAEL Kaur Num: [id number] Spec Type: Surgical Subm Dr: Juanito Ventura DO Tissues: A Colon Biopsy (POLYP 20 CM) B Colon Biopsy (POLYP 12 CM) Procedures: PRABHU/Sudhir, Gross/Ho L4/2 Patient: Jessa Guzman [id number] (Continued) Specimen: [id number] Received: 12/18/23 (Continued) Signed (signature on file) Jasvir Floyd MD 12/19/231935 Specimen: [id number] Received: 12/18/23 Status: RACHAEL Kaur Num: [id number] Spec Type: Surgical Subm Dr: Juanito Ventura DO Tissues: A Colon Biopsy (POLYP 20 CM) B Colon Biopsy (POLYP 12 CM) Procedures: HE/Sudhir, Gross/Micro L4/2 Patient: Jessa Guzman [id number] (Continued) Specimen: [id number] Received: 12/18/23 (Continued) Microscopic Description Microscopic examinations are performed supporting the above interpretation CPT Codes 08125Y8 Specimen: [id number] Received: 12/18/23 Status: RACHAEL Kaur Num: [id number] Spec Type: Surgical Subm Dr: Juanito Ventura DO Tissues: A Colon Biopsy (POLYP 20 CM) B Colon Biopsy (POLYP 12 CM) Procedures: PRABHU/Sudhir, Angelica/Ho L4/2 Patient: Jessa Guzman [id number] (Continued) Signed (signature on file) Adalberto Floyd MD 12/19/231935 Normal [facility] Superficial Wound Cultureon 02-01-2022 Superficial Wound Culture [...] RESISTANT TO ALL B-LACTAM DRUGS. PERFORMED BY: [place] [address] PATHOLOGIST WOOD HEEL FITTER MACHINE RAMY HU M.D. [facility] Comment on above: Performed By: #### C USUP #### [address] [place] DIGITAL SCREEN BILA TERALOrdered By: Radha Urbano on 12-02-2020 No mammographic evidence of malignancy. BI-RADS 1 BIRADS: BIRADS - CATEGORY 1 Negative, no evidence of malignancy. Normal interval follow-up is recommended in 12 months. OVERALL ASSESSMENT - NEGATIVE A letter of notification will be sent to the patient regarding the results. The [employer] recommends annual mammograms for women 40 years and older. [employer] Phone: EXAMINATION: SCREENI NG DIGITAL BILATERAL MAMMOGRAM WITH TOMOSYNTHESIS, 12/01/2020 TECHNIQUE: Screening mammography was performed with tomosynthesis including MLO and CC views of the bilateral breasts. Computer aided detection was used for the interpretation of this exam. COMPARISON: 06/16/2019 HISTORY: Screening. FINDINGS: The breast tissue is composed of scattered fibroglandular tissue. There is no suspicious mass, suspicious microcalcification, or area of architectural distortion. [employer] Phone: [employer] Phone: ECHO Complete 2D W Doppler W ColorOrdered By: Radha Urbano on 09-28-2020 [facility] Transthoracic Echocardiography Report (TTE) Patient Name THOMAS Date of Study 09/28/2020 JESSA Gaytan Date of 1975 Gender Female Age 44 year(s) Race Room Number Height: 67 inch, 170.18 cm Corporate ID [id number] Weight: 225 pounds, 102.1 kg # Patient Acct [id number] BSA: 2.13 m^2 BMI: 35.24 # kg/m^2 MR # [id number] Quarantine InspectorSaira Kaplan Interpreting Physician Jc Antonio Fellow Referring Nurse Radha Urbano, SPORTS INTERN Practitioner Interpreting Referring Physician Fellow Type of Study TTE procedure:2D Echocardiogram, M-Mode, Doppler, Color Doppler. Procedure Date Date: 09/28/2020 Start: 08:28 AM Study Location: [facility] Indications:Dizziness. History / Tech. Comments: [...] Wall E' velocity:0.11 m/s Lateral Wall E/E':7.38 [employer] Phone: Salvatore, Mhpn Incoming Cardio Results From [facility] - 09/28/2020 12:53 PM EDT [facility] Transthoracic Echocardiography Report (TTE) Patient Name THOMAS Date of Study 09/28/2020 JESSA Gaytan Date of 1975 Gender Female Age 44 year(s) Race Room Number Height: 67 inch, 170.18 cm Corporate ID [id number] Weight: 225 pounds, 102.1 kg # Patient Acct [id number] BSA: 2.13 m^2 BMI: 35.24 # kg/m^2 MR # [id number] Quarantine Inspector DeeSiara Interpreting Physician Jc Antonio Fellow Referring Nurse Radha Urbano, SPORTS INTERN Practitioner Interpreting Referring Physician Fellow Type of Study TTE procedure:2D Echocardiogram, M-Mode, Doppler, Color Doppler. Procedure Date Date: 09/28/2020 Start: 08:28 AM Study Location: [facility] Indications:Dizziness. History / Tech. Comments: [...] Wall E' velocity:0.11 m/s Lateral Wall E/E':7.38 [employer] Phone: Dermatopathologyon 0 Dermatopathology [facility] Dermatopathology Laboratory [address] [place] [id number] DERMATOPATHOLOGY REPORT Name:JESSA GUZMAN Brittaney Med. Rec #. [id number] Location: [facility] Date of Procedure: 01/12/2020 Race: Date Received: 01/15/2020 /Sex: 1975 (Age: 44) / F Date Reported: 01/16/2020 Other: Submitting Physician:PRETTY DUMONT PA-C FINAL DIAGNOSIS SKIN, R FOREARM, BIOPSY: COMPOUND NEVUS, PRESENT ON THE DEEP MARGIN. Electronically Signed Out by FARZAD GRAHAM M.D. Electronically Signed Out By FARZAD GRAHAM MD/[facility] By the signature on this report, the individual or group listed as making the Final Interpretation/Diagnosi s certifies that they have reviewed this case. Clinical History: 0.6 x 0.6 cm. Atypical Nevus. Biopsy. Specimens Submitted As: A: SKIN, R FOREARM Gross Description: Received in formalin is one [place]-brown piece of skin measuring 3o5m8qo. The specimen is inked and embedded in toto. dcp/01/15/2020 Microscopic Description: Microscopic analysis shows a symmetric proliferation of melanocytes in epidermis and dermis. Melanocytes nest regularly along the dermal-epidermal junction, and dermal melanocytes mature with increasing depth in dermis. The melanocytes show no cytologic atypia. Normal [facility] Comment on above: Performed By: #### D #### Dermatopathology [facility] DIGITAL DIAGNOSTIC W OR WO CAD RIGHTOrdered By: Adela Bejarano on 06-27-2019 Summation artifact accounts for the focal asymmetry seen at screening. No follow-up is recommend. BIRADS: BIRADS - CATEGORY 1 Negative, no evidence of malignancy. Normal interval follow-up is recommended in 12 months. OVERALL ASSESSMENT - NEGATIVE A letter of notification will be sent to the patient regarding the results. The [employer] recommends annual mammograms for women 40 years and older. [employer] Phone: EXAMINATION: DIAGNOS TIC DIGITAL RIGHT BREAST [...] seen. Tomosynthesis images demonstrate no suspicious abnormality. [employer] Phone: Salvatore, Mhpn Incoming Radiant Results From [employer] - 06/27/2019 9:58 AM EST EXAMINATION: DIAGNOSTIC [...] to the patient regarding the results. [employer] recommends annual mammograms for women 40 years and older. [employer] Phone: [facility] DIGITAL SCREEN W OR WO C AD BILATERALOrdered By: Adela Bejarano on 06-16-2019 Focal asymmetry oute r central right breast requiring additional mammographic workup. Full workup may require ultrasonography. BI-RADS 0 BIRADS: BIRADS - CATEGORY 0 Additional imaging is recommended at this time. OVERALL ASSESSMENT - INCOMPLETE:NEED ADDITIONAL IMAGING EVALUATION. [employer] Phone: EXAMINATION: BILATER AL DIGITAL SCREENING MAMMOGRAM, [...] changes, or malignant type microcalcifications are noted. [employer] Phone: Salvatore, Mhpn Incoming Radiant Results From [employer] - 06/16/2019 6:12 PM EST EXAMINATION: BILATERAL [...] OVERALL ASSESSMENT - INCOMPLETE:NEED ADDITIONAL IMAGING EVALUATION. [employer] Work Phone: Vital Signs Date Time Vital Sign Value Performing Clinician Pawan [facility] 10-21-2024 10:56-0400 Body mass index (BMI) [Ratio] 33.36 kg/m2 [employer] Work Phone: [facility] [employer] 10-21-2024 10:56-0400 Body weight 96.62 kg [employer] Phone: [facility] [employer] 10-21-2024 10:56-0400 Diastolic blood pressure 74 mm[Hg] [employer] Work Phone: [facility] [employer] 10-21-2024 10:56-0400 Systolic blood pressure 128 mm[Hg] [employer] Work Phone: [facility] [employer] 07-24-2024 10:01-0500 Body height 170.2 cm Radha Urbano NP Work Phone: [facility] [employer] 07-24-2024 10:01-0500 Body mass index (BMI) [Ratio] 35.08 kg/m2 Radha Urbano NP Work Phone: [facility] [employer] 07-24-2024 10:01-0500 Body temperature 95.79 [degF] Radha Fruth 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 Work Phone: [facility] 07-24-2024 10:01-0500 Body weight 101.61 kg Radha Fruth 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 Work Phone: [facility] 07-24-2024 10:01-0500 Diastolic blood pressure 78 mm[Hg] Radha Fruth 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 Work Phone: [facility] 07-24-2024 10:01-0500 Heart rate 77 /min Radha Fruth 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 Work Phone: [facility] 07-24-2024 10:01-0500 SaO2% (BldA) [Mass fraction] 98 % Radha Fruth 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 Work Phone: [facility] 07-24-2024 10:01-0500 Systolic blood pressure 122 mm[Hg] Radha Fruth 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 Work Phone: [facility] 02-26-2024 09:07-0400 Body height 170.2 cm Radha Fruth 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 Work Phone: [facility] 02-26-2024 09:07-0400 Body mass index (BMI) [Ratio] 37.59 kg/m2 Radha Fruth 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 Work Phone: [facility] 02-26-2024 09:07-0400 Body weight 108.86 kg Radha Fruth 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 Work Phone: [facility] 02-26-2024 09:07-0400 Diastolic blood pressure 100 mm[Hg] Radha Fruth 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 Work Phone: [facility] 02-26-2024 09:07-0400 Heart rate 81 /min Radha Fruth 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 Work Phone: [facility] 02-26-2024 09:07-0400 SaO2% (BldA) [Mass fraction] 98 % Radha Fruth 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 Work Phone: [facility] 02-26-2024 09:07-0400 Systolic blood pressure 130 mm[Hg] Radha Fruth 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 Work Phone: [facility] 01-28-2024 09:28-0400 Body height 170.2 cm Radha Fruth 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 Work Phone: [facility] 01-28-2024 09:28-0400 Body mass index (BMI) [Ratio] 37.75 kg/m2 Radha Fruth 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 Work Phone: [facility] 01-28-2024 09:28-0400 Body weight 109.32 kg Radha Fruth 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 Work Phone: [facility] 01-28-2024 09:28-0400 Diastolic blood pressure 100 mm[Hg] Radha Fruth 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 Work Phone: [facility] 01-28-2024 09:28-0400 Heart rate 95 /min Radha Fruth 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 Work Phone: [facility] 01-28-2024 09:28-0400 SaO2% (BldA) [Mass fraction] 98 % Radha Fruth 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 Work Phone: [facility] Healthcare 01-28-2024 09:28-0400 Systolic blood pressure 140 mm[Hg] Radha Fruth 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 Work Phone: [facility] Healthcare Encounters Encounter Date Encounter Type Care Provider Facility Start: 10-21-2024 End: 10-21-2024 Bamboo flowsheet Adelia Claude DO Work Phone: [facility] Start: 10-21-2024 End: 10-21-2024 Bamboo flowsheet Adelia Claude DO Work Phone: [facility] Start: 10-21-2024 End: 10-21-2024 Patient encounter procedure Adelia Claude DO Work Phone: [facility] Healthcare Start: 10-21-2024 End: 10-21-2024 Periodic preventive med est patient 40-64yrs Adelia Claude DO Work Phone: [facility] Comment on above: Well woman exam with routine gynecological exam Start: 08-12-2024 End: 08-12-2024 ambulatory RADHA E FRUTH Not Available Start: 07-25-2024 End: 07-25-2024 Telephone encounter Radha E Fruth 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 Work Phone: [facility] Comment on above: h pylori infection Start: 07-24-2024 End: 07-24-2024 Bamboo flowsheet Radha E Fruth 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 Work Phone: [facility] Start: 07-24-2024 End: 07-24-2024 Bamboo flowsheet Radha E Fruth 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 Work Phone: [facility] Start: 07-24-2024 End: 07-24-2024 Office outpatient visit 15 minutes Radha E Fruth 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 Work Phone: [facility] Comment on above: Epigastric pain (Helen kaitlyn Dx); Caregiver stress Start: 07-24-2024 End: 07-24-2024 ambulatory RADHA E FRUTH Not Available Start: 02-27-2024 End: 02-27-2024 Telephone encounter Stephany Bautista LPN Other Phone: [facility] Comment on above: Medication Question; ear drops Start: 02-26-2024 End: 02-26-2024 Bamboo flowsheet Radha E Fruth 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 Work Phone: [facility] Start: 02-26-2024 End: 02-26-2024 Bamboo flowsheet Radha E Fruth 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 Work Phone: [facility] Start: 02-26-2024 End: 02-26-2024 ambulatory RADHA E FRUTH Not Available Start: 02-26-2024 End: 02-26-2024 Office outpatient visit 15 minutes Radha E Fruth 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 Work Phone: [facility] Comment on above: Essential hypertensi on (CMS/HCC) (Primary Dx); Morbid (severe) obesity due to excess calories (CMS/HCC); Body mass index (BMI) 37.0-37.9, adult Start: 01-28-2024 End: 01-28-2024 Bamboo flowsheet Radha E Fruth 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 Work Phone: [facility] Start: 01-28-2024 End: 01-28-2024 Bamboo flowsheet Radha Urbano 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 Work Phone: [facility] Start: 01-28-2024 End: 01-28-2024 Patient encounter status Radha Urbano 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 Work Phone: [facility] Work Phone: Start: 01-28-2024 End: 01-28-2024 Periodic preventive med est patient 40-64yrs Radha Urbano 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 Work Phone: [facility] Comment on above: Routine general medi lucina examination at a health care facility (Primary Dx); Essential hypertension (CMS/HCC); Caregiver stress Start: 01-28-2024 End: 01-28-2024 ambulatory RADHA URBANO Not Available Start: 01-17-2024 End: 01-19-2024 [facility]ulatory [facility] Start: 01-07-2024 End: 01-07-2024 ambulatory PRETTY DUMONT Not Available Start: 12-18-2023 End: 12-18-2023 ambulatory Juanito Ventura [facility] Work Phone: Start: 12-18-2023 End: 12-18-2023 Departed Referred DO Juanito Ventura Work Phone: [facility] Start: 11-07-2023 End: 11-07-2023 ambulatory JUANITO VENTURA Not Available Start: 10-11-2023 End: 10-11-2023 ambulatory ADELIA ARCE Not Available Start: 02-07-2022 End: 02-07-2022 Subsequent hospital visit by physician Radha Urbano Work Phone: [facility] Laboratory Start: 02-01-2022 End: 02-01-2022 Departed Referred MD Hilary Cruz Work Phone: [facility] Main [place] Start: 12-01-2020 End: 12-03-2020 [facility] Start: 12-01-2020 End: 12-03-2020 Subsequent hospital visit by physician [facility] Mammography Room At [facility] Mammography Comment on above: Breast cancer screen ing by mammogram; Routine medical exam Start: 09-28-2020 End: 09-28-2020 Subsequent hospital visit by physician [facility] Echo Room [facility] Echocardiography Comment on above: Fatigue, unspecified type; Dizziness and giddiness; Palpitations Start: 07-15-2020 Patient encounter procedure RADHA URBANO Facility:[facility] Start: 05-17-2020 End: 05-17-2020 Subsequent hospital visit by physician Zeke Covid Screening Schedule [facility] Covid Screening Comment on above: Arrived Start: 06-27-2019 End: 06-29-2019 Subsequent hospital visit by physician [facility] Mammography Comment on above: Abnormal mammogram Start: 06-16-2019 End: 06-18-2019 Subsequent hospital visit by physician [facility] Mammography Comment on above: Breast cancer screen ing by mammogram Procedures Date Procedure Procedure Detail Performing Clinician Start: 01-17-2024 Mammography Radha thompson 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 Work Phone: Start: 12-18-2023 Colonoscopy Radha thompson 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 Work Phone: Start: 10-11-2023 Microscopic observat ion [Identifier] in Cervix by Cyto stain Radha Urbano 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 Work Phone: Start: 12-01-2020 Screening mammograph y bi 2-view breast inc cad Radha Urbano Work Phone: Start: 09-28-2020 Echo tthrc r-t 2d w/wom-mode compl spec&colr d Radha Urbano Work Phone: Start: 06-27-2019 Tomosynthesis, mammo Ge rri L [place] Work Phone: Start: 06-16-2019 Screening digital br east tomosynthesis bi Adela L Rine Work Phone: Plan of Treatment Date Care Activity Detail Author Start: 12-17-2033 Screening for malign ant neoplasm of colon [facility] Start: 10-10-2026 Screening for malign ant neoplasm of cervix [facility] Start: 10-27-2025 End: 10-27-2025 Patient encounter procedure 10/27/2025 10:00 AM EDT Office Visit [facility] [address] [place] [address] Melanie Fajardo PA [address] [place], [place] [id number] [facility] Start: 02-02-2025 Influenza vaccination Influenz a Vaccine (Season Ended) [facility] Healthcare Start: 01-16-2025 Screening for malign ant neoplasm of breast Mammogram [facility] Healthcare Start: 01-06-2025 End: 01-06-2025 Patient encounter procedure 01/06/2025 1:20 PM EDT Office Visit [facility] [address] [place] [id number] [place], PA [address] [place] [address] [facility] Start: 12-01-2024 Influenza vaccination Influenza Vacc ine (#1) [facility] Comment on above: Postponed from 02/02 (Patient Refused) Start: 10-21-2024 End: 10-21-2024 Patient encounter procedure 10/21/2024 10:20 AM EDT Office Visit [facility] [address] [place] [address] Adelia Arce, DO [address] [place], [place] [id number] [facility] Start: 10-20-2024 End: 10-20-2024 Patient encounter procedure 10/20/2024 10:00 AM EDT Office Visit [facility] [address] [place] [address] Adelia Arce, DO [address] [place], [place] [id number] [facility] Start: 07-24-2024 End: 07-24-2025 H. pylori breath test H. pylori breath test Lab Routine Epigastric pain Expected: 07/24/2024 (Approximate), Expires: 07/24/2025 [facility] Healthcare Work Phone: Comment on above: Expected: 07/24/2024 (Approximate), Expires: 07/24/2025 Start: 07-24-2024 End: 07-24-2024 Patient encounter procedure 07/24/2024 10:00 AM EST [facility] [address] [place] [phone] Radha Urbano, 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 [address] [place] [address] Arrived [facility] Comment on above: Arrived Start: 04-22-2024 Influenza vaccination Influenza Vacc ine (#1) [facility] Comment on above: Postponed from 02/02 (Patient Refused) Start: 02-26-2024 End: 02-26-2024 Patient encounter procedure 02/26/2024 9:00 AM EDT [facility] [address] [place] [address] Radha Urbano, 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 [address] [place] [address] [facility] Start: 02-03-2024 Influenza vaccination Influenza Vacc ine (#1) [facility] Start: 01-28-2024 End: 01-27-2025 CBC W Auto Differential panel - Blood CBC and differential Lab Routine Routine general medical examination at a health care facility Essential hypertension (CMS/HCC) Expected: 01/28/2024 (Approximate), Expires: 01/27/2025 [facility] Work Phone: Comment on above: Expected: 01/28/2024 (Approximate), Expires: 01/27/2025 Start: 01-28-2024 End: 01-27-2025 Comprehensive metabolic 2000 panel - Serum or Plasma Comprehensive metabolic panel Lab Routine Routine general medical examination at a health care facility Essential hypertension (CMS/HCC) Expected: 01/28/2024 (Approximate), Expires: 01/27/2025 [facility] Healthcare Comment on above: Expected: 01/28/2024 (Approximate), Expires: 01/27/2025 Start: 01-28-2024 End: 01-27-2025 Lipid 1996 panel - Serum or Plasma Lipid panel Lab Routine Routine general medical examination at a health care facility Essential hypertension (CMS/HCC) Expected: 01/28/2024 (Approximate), Expires: 01/27/2025 [facility] Healthcare Comment on above: Expected: 01/28/2024 (Approximate), Expires: 01/27/2025 Start: 01-28-2024 End: 01-27-2025 Microalbumin/Creatinine panel in random Urine Microalbumin / creatinine urine ratio Lab Routine Routine general medical examination at a health care facility Essential hypertension (CMS/HCC) Expected: 01/28/2024 (Approximate), Expires: 01/27/2025 [facility] Healthcare Comment on above: Expected: 01/28/2024 (Approximate), Expires: 01/27/2025 Start: 01-28-2024 End: 01-27-2025 Thyrotropin [Units/volume] in Serum or Plasma TSH Lab Routine Routine general medical examination at a health care facility Essential hypertension (CMS/HCC) Expected: 01/28/2024 (Approximate), Expires: 01/27/2025 [facility] Healthcare Comment on above: Expected: 01/28/2024 (Approximate), Expires: 01/27/2025 Start: 01-28-2024 End: 01-28-2024 Patient encounter procedure 01/28/2024 9:30 AM EDT Office Visit [facility] [address] [place] [id number] Radha Urbano NP [address] [place] [address] Arrived [facility] Comment on above: Arrived Start: 02-02-2022 Influenza vaccination Flu vaccine (# 1) [facility] Start: 02-02-2021 Influenza vaccination [facility] [employer] Work Phone: Start: 12-01-2020 End: 12-01-2020 Patient encounter procedure 12/01/2020 Appointment Radiology [facility] Mammography Start: 02-03-2020 Influenza vaccination Flu vaccine (# 1) [facility] ANTONIO ESCOBEDO Start: 06-27-2019 End: 06-27-2019 Patient encounter procedure [facility]amm[facility] Start: 02-02-2019 Influenza vaccination Flu vaccine (# 1) [employer] Phone: Start: 2017 Lipid panel [facility] Start: 2017 Lipid screen Lipid screen [facility] Work Phone: Start: 12-20-2007 Screening for malign ant neoplasm of cervix [facility] Start: 1998 Cervical cancer screen Cervical canc er screen [facility] [employer] Phone: Start: 1998 Screening for malign ant neoplasm of [facility]ix [facility] Start: 1996 DTaP/Tdap/Td vaccine (1 - Tdap) DTaP/Tdap/Td vaccine (1 - Tdap) [facility] Start: 12-20-1995 Hepatitis C screening Hepatitis C sc reen [facility] Start: 1993 COVID-19 Vaccine (1) COVID-19 Vaccin e (1) [employer] Phone: Start: 1992 HIV screen HIV screen [facility] Work Phone: Start: 1992 HIV screening HIV screen [facility] Start: 1989 COVID-19 Vaccine (1) COVID-19 Vaccin e (1) [employer] Phone: Start: 1989 Depression Screen Depression Screen [facility] Start: 1988 DTaP/Tdap/Td vaccine (1 - Tdap) DTaP/Tdap/Td vaccine (1 - Tdap) [facility] [employer] Phone: Start: 06-21-1978 COVID-19 Vaccine (#1) COVID-19 Vacci ne (#1) [employer] Start: 1977 Hepatitis C screening Hepatitis C sc lillian [employer] Work Phone: Start: 1977 Screening for malign ant neoplasm of colon [facility] Aerobic microbial culture Superficial Wound Culture [facility] End: 05-17-2020 Covid-19 Ambulatory Covid-19 Ambulatory Lab Routine Once for 1 Occurrences starting 05/17/2020 until 05/17/2020 [employer] [place] Comment on above: Once for 1 Occurrenc es starting 05/17/2020 until 05/17/2020 Covid-19 Ambulatory Covid-19 Amb ulatory Lab Routine 05/17/2020 1:56 PM EST [facility] [place] End: 02-07-2022 Culture, Wound MARIA DE JESUS [employer] Phone: Comment on above: Once for 1 Occurrenc es starting 02/07/2022 until 02/07/2022 Echo tthrc r-t 2d w/ wo m-mode complete rest&st ECHO REPORT Echocardiography Ordered: 09/28/2020 [employer] Phone: Comment on above: Ordered: 09/28/2020 THIN PREP TIS PAP AN D HR HPV DNA THIN PREP TIS PAP AND HR HPV DNA Pathology and Cytology Routine Well woman exam with routine gynecological exam Ordered: 10/21/2024 [employer] Work Phone: Comment on above: Ordered: 10/21/2024 Payers Date Payer Category Payer Self-pay [address] [facility] [id number] 2022 Unknown [id number] 2020 Unknown 2019 Unknown BC[place] P PO [id number] 2019-Present [address] [place] [address] [id number] 2019 Unknown [id number] 2017 Unknown [place] P PO xxxxxxxxxxxx 2017-Present [address] [place] [address] xxxxxxxxxxxx [id number] 1977 Unknown [id number] 196 1977 Unknown [id number] 173 1977 Unknown [id number] 9 1977 Unknown [id number] 9 1977 Unknown [id number] [id number] 1977 Unknown [id number] 9 1977 Unknown [id number]. 9 1977 Unknown [id number] 9 1977 Unknown [id number]. 125 Unknown [id number] 531 Social History Date Type Detail Facility [facility] [employer] Phone: Start: 1975 Sex Assigned At Not on file [employer] Phone: Start: 12-01-2020 Tobacco smoking stat [facility] Unknown if ever smoked [employer] Phone: Exposure to SARS-CoV -2 (event) Not sure [employer] Start: 1975 Sex Assigned At Female F [facility] Start: 01-08-2023 Tobacco smoking stat us NHIS Never smoked tobacco [facility] Start: 01-08-2023 Tobacco use and exposure Smoke less tobacco non-user [facility] Start: 01-07-2024 End: 10-21-2024 Alcoholic beverage intake Current drinker of alcohol (finding) [facility] Start: 07-30-2023 End: 01-07-2024 Alcoholic beverage intake [facility] Start: 07-30-2023 End: 07-24-2024 Social connection and isolation panel [facility] Do you belong to any clubs or organizations such as hoahaoism groups, unions, fraternal or athletic groups, or school groups? No [facility] How often do you att end meetings of the clubs or organizations you belong to? Patient declined [facility] Are you now , , , , never or living with a partner? [facility] How often to you hav e a drink containing alcohol? Monthly or less [facility] How many standard dr inks containing alcohol do you have on a typical day? 1 or 2 [facility] How often do you hav e 6 or more drinks on 1 occasion? Never [facility] Do you feel stress - tense, restless, nervous, or anxious, or unable to sleep at night because your mind is troubled all the time - these days [OSQ] Only a little [facility] (I/We) worried wheth er (my/our) food would run out before (I/we) got money to buy more. Never true [facility] Clinical Notes 09-28-2020 to 10-21-2024 ELYSIA Gupta - 10/21/2024 10:20 AM EDTTelephone Encounter - Radha Urbano NP - 07/25/2024 11:00 AM ESTTelephone Encounter - Radha Urbano NP - 07/25/2024 11:00 AM EST Note Date & Type Note Facility 10-21-2024 History of Presen t illness Narrative Reason for Appointment: Patient ID: Jessa Guzman is a 48 y.o. female who presents for Gynecologic Exam Patient presents today for Annual Exam. MEDICATIONS Current Outpatient Medications Medication Instructions ALPRAZolam (XANAX) 0.5 mg, Oral, Nightly PRN amLODIPine (NORVASC) 5 mg, Oral, Daily hydroCHLOROthiazide (HYDRODIURIL) 12.5 mg, Oral, Daily Levonorgestrel (Mirena, 52 MG,) 20 MCG/DAY intrauterine device Mirena ondansetron ODT (ZOFRAN-ODT) 4 mg, Oral, Every 8 hours PRN pantoprazole (PROTONIX) 40 mg, Oral, Daily before breakfast, Do not crush, chew, or split. promethazine-dextromethorphan (Phenergan-DM) 6.25-15 MG/5ML syrup 5 mL, Oral, Every 4 hours PRN sucralfate (CARAFATE) 1 g, Oral, 4 times daily before meals and nightly SUMAtriptan (IMITREX) 50 mg, Oral, Once as needed Ubrogepant (Ubrelvy) 100 MG tablet 1 tablet, Oral, Daily PRN valACYclovir (VALTREX) 500 mg, Oral, Daily ALLERGIES Allergies Allergen Reactions Cefaclor GI intolerance Doxycycline Other Reaction(s): vomiting Sulfamethoxazole Other Reaction(s): Nausea/Vomiting Trimethoprim Other Reaction(s): Nausea/Vomiting Wound Dressing Adhesive Other Reaction(s): Unknown PROBLEMS Active Ambulatory Problems Diagnosis Date Noted Amenorrhea 07/30/2023 Calcaneal spur of left foot 07/30/2023 Constipation 07/30/2023 Migraine without aura and without status migrainosus, not intractable ([facility]) 07/30/2023 Obesity (BMI 30.0-34.9) 07/30/2023 Plantar fascia syndrome 07/30/2023 Sleep apnea in adult 07/30/2023 Stress reaction 07/30/2023 Vitamin D deficiency 07/30/2023 Resolved Ambulatory Problems Diagnosis Date Noted Pain in limb 07/30/2023 Past Medical History: Diagnosis Date Actinic keratoses Atypical nevus of back 02/2021 Hypertension ([facility]) Melanoma ([facility]) 2013 Migraines ([facility]) HISTORY PAST MEDICAL HISTORY SOCIAL HISTORY Past Medical History: Diagnosis Date Actinic keratoses Atypical nevus of back 02/2021 Severely atypical nevus, right back Hypertension ([facility]) Melanoma ([facility]) 2012 right mid back - excision Migraines (CMS/HCC) Pain in limb 07/30/2023 Social History Tobacco Use Smoking status: Never Smokeless tobacco: Never Substance Use Topics Alcohol use: Yes Alcohol/week: 1.0 standard drink of alcohol Types: 1 Standard drinks or equivalent per week Drug use: Never FAMILY HISTORY Family History Adopted: Yes Family history unknown: Yes SURGICAL HISTORY Past Surgical History: Procedure Laterality Date DILATION AND CURETTAGE OF UTERUS REVIEW OF SYSTEMS Review of Systems: Review of Systems Constitutional: Negative. HENT: Negative. Eyes: Negative. Respiratory: Negative. Cardiovascular: Negative. Gastrointestinal: Negative. Genitourinary: Negative. Musculoskeletal: Negative. Skin: Negative. Neurological: Negative. All other systems reviewed and are negative. Hematological: Negative. Endocrine: Negative. Allergic/Immunologic: Negative. OBJECTIVE Objective: Physical Exam Constitutional: Appearance: Normal appearance. Genitourinary: Right Adnexa: not tender and no mass present. Left Adnexa: not tender and no mass present. No cervical discharge. IUD strings visualized. Breasts: Breasts are soft. Right: Normal. Left: Normal. HENT: Head: Normocephalic. Nose: Nose normal. Mouth/Throat: Mouth: Mucous membranes are moist. Cardiovascular: Rate and Rhythm: Normal rate. Pulmonary: Effort: Pulmonary effort is normal. Abdominal: General: Bowel sounds are normal. Palpations: Abdomen is soft. Musculoskeletal: General: Normal range of motion. Cervical back: Normal range of motion. Neurological: General: No focal deficit present. Mental Status: She is alert. Skin: General: Skin is warm and dry. Psychiatric: Mood and Affect: Mood normal. Vitals and nursing note reviewed. Exam conducted with a sewing pattern layout technician present. Vitals: Estimated body mass index is 33.36 kg/m as calculated from the following: Height as of 08/12/24: 5' 7 . Weight as of this encounter: 213 lb. BP: 128/74 No LMP recorded. ASSESSMENT & PLAN ICD-10-CM 1. Well woman exam with routine gynecological exam Z01.419 THIN PREP TIS PAP AND HR HPV DNA Annual Exam: Patient presents today for an annual exam. Patient states she is doing well and has no complaints. Pap was obtained without difficulty. No orders of the defined types were placed in this encounter. Follow Up: Patient is to return in one year for annual unless needed otherwise. Documented by ELYSIA Gupta on behalf of: Adelia Arce DO documented in this encounter [facility] 07-25-2024 Telephone encounter Note + h pylori. Pt aware. Rx sent. [facility] 07-25-2024 Miscellaneous Notes + h pylori. Pt aware. Rx sent. documented in this encounter [facility] 07-24-2024 History of Presen t illness Narrative Images from the original note were not included. Jessa Guzman is a 48 y.o. 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 He passed Sunday and his showing is tomorrow. Pt has been bloated gassy with epigastric pain and no appetite. Bowels at her baseline. Denies black or tarry stools. Denies fever/chills. SUBJECTIVE: MEDICATIONS: Current Outpatient Medications Medication Instructions ALPRAZolam (XANAX) 0.5 mg, Oral, Nightly PRN amLODIPine (NORVASC) 5 mg, Oral, Daily hydroCHLOROthiazide (HYDRODIURIL) 12.5 mg, Oral, Daily Levonorgestrel (Mirena, 52 MG,) 20 MCG/DAY intrauterine device Mirena Lidocaine 3 % cream 1 Application, Apply externally, 4 times daily PRN ondansetron ODT (ZOFRAN-ODT) 4 mg, Oral, Every 8 hours PRN pantoprazole (PROTONIX) 40 mg, Oral, Daily before breakfast, Do not crush, chew, or split. sucralfate (CARAFATE) 1 g, Oral, 4 times daily before meals and nightly SUMAtriptan (IMITREX) 50 mg, Oral, Once as needed Ubrogepant (Ubrelvy) 100 MG tablet 1 tablet, Oral, Daily PRN valACYclovir (VALTREX) 500 mg, Oral, Daily ALLERGIES: Allergies Allergen Reactions Cefaclor GI intolerance Doxycycline Other Reaction(s): vomiting Sulfamethoxazole Other Reaction(s): Nausea/Vomiting Trimethoprim Other Reaction(s): Nausea/Vomiting Wound Dressing Adhesive Other Reaction(s): Unknown SURGICAL HISTORY: Past Surgical History: Procedure Laterality Date DILATION AND CURETTAGE OF UTERUS FAMILY HISTORY: Family History Adopted: Yes Family history unknown: Yes SOCIAL HISTORY: Social History Tobacco Use Smoking status: Never Smokeless tobacco: Never Substance Use Topics Alcohol use: Yes Alcohol/week: 1.0 standard drink of alcohol Types: 1 Standard drinks or equivalent per week Drug use: Never Depression: Not at risk (07/24/2024) PHQ-2 PHQ-2 Score: 0 REVIEW OF SYMPTOMS: Review of Systems Constitutional: Positive for activity change, appetite change and fatigue. Negative for fever. HENT: Negative. Eyes: Negative. Respiratory: Negative. Cardiovascular: Negative. Gastrointestinal: Positive for abdominal distention, abdominal pain, constipation and nausea. Negative for anal bleeding, blood in stool, diarrhea, rectal pain and vomiting. Genitourinary: Negative. Musculoskeletal: Negative. Skin: Negative. Psychiatric/Behavioral: Negative. Hematological: Negative. Endocrine: Negative. Allergic/Immunologic: Negative. OBJECTIVE: Visit Vitals BP 122/78 (BP Location: Left arm, Patient Position: Sitting, BP Cuff Size: Adult) Pulse 77 Temp 95.8 F (Tympanic) Ht 5' 7 Wt 224 lb SpO2 98% BMI 35.08 kg/m Smoking Status Never BSA 2.2 m Physical Exam Constitutional: Appearance: Normal appearance. HENT: Head: Normocephalic and atraumatic. Mouth/Throat: Mouth: Mucous membranes are moist. Pharynx: Oropharynx is clear. Eyes: Extraocular Movements: Extraocular movements intact. Conjunctiva/sclera: Conjunctivae normal. Pupils: Pupils are equal, round, and reactive to light. Cardiovascular: Rate and Rhythm: Normal rate and regular rhythm. Pulses: Normal pulses. Heart sounds: Normal heart sounds. Pulmonary: Effort: Pulmonary effort is normal. Breath sounds: Normal breath sounds. Abdominal: General: Abdomen is flat. There is no distension. Palpations: Abdomen is soft. There is no mass. Tenderness: There is abdominal tenderness. There is guarding. There is no right CVA tenderness, left CVA tenderness or rebound. Hernia: No hernia is present. Comments: Tender epigastric region. Musculoskeletal: General: Normal range of motion. Cervical back: Normal range of motion and neck supple. Right lower leg: No edema. Left lower leg: No edema. Skin: General: Skin is warm and dry. Capillary Refill: Capillary refill takes less than 2 seconds. Neurological: General: No focal deficit present. Mental Status: She is alert and oriented to person, place, and time. Mental status is at baseline. Psychiatric: Mood and Affect: Mood normal. Behavior: Behavior normal. Thought Content: Thought content normal. Judgment: Judgment normal. ASSESSMENT AND PLAN: Assessment/Plan Problem List Items Addressed This Visit None Visit Diagnoses Epigastric pain - Primary Relevant Medications pantoprazole (Protonix) 40 MG EC tablet sucralfate (Carafate) 1 g tablet ondansetron ODT (Zofran-ODT) 4 MG disintegrating tablet Other Relevant Orders H. pylori breath test [place] diet no dairy. Medication as directed. Call with any concerns. Caregiver stress Relevant Medications ALPRAZolam (Xanax) 0.5 MG tablet Discussed how she may benefit from the practices of mindlefullness. Reading resources suggested to her for purchase. Discussed how these techniques reduce stress, as well as improve depression and sleep. Follow up wellness due in january and as needed.. documented in this encounter [facility] 02-27-2024 Telephone encounter Note Pt reports that ear gtts were probably prescribed last fall as this symptoms tends to return yearly. Willing to try steroid, would like sent to [facility] ____ Pt sent mycMysteriot message to provider for ear gtt refill. REF out of the office; [facility] response to pt message : Would NOT recommend using this much drops in one day, keeping that moisture in the ear can cause a fungal ear infection which can be very difficult to treat. Would she like steroid burst for discomfort and one time refill PRESCRIBED for drops? [facility] Healthcare Work Phone: 02-27-2024 Miscellaneous Notes Pt reports that ear gtts were probably prescribed last fall as this symptoms tends to return yearly. Willing to try steroid, [facility] ____ Pt sent mychart message to provider for ear gtt refill. REF out of the office; [facility] response to pt message : Would NOT recommend using this much drops in one day, keeping that moisture in the ear can cause a fungal ear infection which can be very difficult to treat. Would she like steroid burst for discomfort and one time refill PRESCRIBED for drops? documented in this encounter [facility] 02-26-2024 History of Presen t illness Narrative Wellness 01/2024 Pap 10/2023 Labs 01/2024 Mamm 01/2024 Cook Taco- Dr. Arce Repairer Shoe Sticks- Dr. Hui Box Dentist- [facility] Colonscopy 12/2023 repeat in 3 years for polyp Jessa Guzman is a 48 y.o. 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 Not sleeping much so living on caffeine. Denies cp sob edema or palpitations. SUBJECTIVE: MEDICATIONS: Current Outpatient Medications Medication Instructions ALPRAZolam (XANAX) 0.5 mg, Oral, Nightly PRN amLODIPine (NORVASC) 5 mg, Oral, Daily hydroCHLOROthiazide (HYDRODIURIL) 12.5 mg, Oral, Daily Levonorgestrel (Mirena, 52 MG,) 20 MCG/DAY intrauterine device Mirena Lidocaine 3 % cream 1 Application, Apply externally, 4 times daily PRN SUMAtriptan (IMITREX) 50 mg, Oral, Once as needed Ubrogepant (Ubrelvy) 100 MG tablet 1 tablet, Oral, Daily PRN valACYclovir (VALTREX) 500 mg, Oral, Daily ALLERGIES: Allergies Allergen Reactions Cefaclor GI intolerance Doxycycline Other Reaction(s): vomiting Sulfamethoxazole Other Reaction(s): Nausea/Vomiting Trimethoprim Other Reaction(s): Nausea/Vomiting Wound Dressing Adhesive Other Reaction(s): Unknown SURGICAL HISTORY: Past Surgical History: Procedure Laterality Date DILATION AND CURETTAGE OF UTERUS FAMILY HISTORY: Family History Adopted: Yes Family history unknown: Yes SOCIAL HISTORY: Social History Tobacco Use Smoking status: Never Smokeless tobacco: Never Substance Use Topics Alcohol use: Yes Alcohol/week: 1.0 standard drink of alcohol Types: 1 Standard drinks or equivalent per week Drug use: Never Depression: Not at risk (07/30/2023) PHQ-2 PHQ-2 Score: 0 REVIEW OF SYMPTOMS: Review of Systems Review of Systems Constitutional: Negative for fatigue, fever and unexpected weight change. HENT: Negative for congestion, dental problem, ear pain, postnasal drip, sinus pain and sore throat. Eyes: Negative for discharge and visual disturbance. Respiratory: Negative for snoring, cough, shortness of breath and wheezing. Cardiovascular: Negative for chest pain and palpitations. Gastrointestinal: Negative for blood in stool, constipation, diarrhea, nausea and vomiting. Genitourinary: Negative for difficulty urinating, dysuria and enuresis. Musculoskeletal: Negative for arthralgias and back pain. Skin: Negative for color change, rash and wound. Allergic/Immunologic: Negative for food allergies. Neurological: Negative for dizziness and headaches. Psychiatric/Behavioral: Negative for self-injury and sleep disturbance. The patient is not nervous/anxious. OBJECTIVE: Visit Vitals BP (!) 130/100 Pulse 81 Ht 5' 7 Wt 240 lb SpO2 98% BMI 37.59 kg/m Smoking Status Never BSA 2.27 m Physical Exam Constitutional: Appearance: Normal appearance. HENT: Head: Normocephalic and atraumatic. Mouth/Throat: Mouth: Mucous membranes are moist. Pharynx: Oropharynx is clear. Eyes: Extraocular Movements: Extraocular movements intact. Conjunctiva/sclera: Conjunctivae normal. Pupils: Pupils are equal, round, and reactive to light. Cardiovascular: Rate and Rhythm: Normal rate and regular rhythm. Pulses: Normal pulses. Heart sounds: Normal heart sounds. Pulmonary: Effort: Pulmonary effort is normal. Breath sounds: Normal breath sounds. Musculoskeletal: General: Normal range of motion. Cervical back: Normal range of motion and neck supple. Skin: General: Skin is warm and dry. Capillary Refill: Capillary refill takes less than 2 seconds. Neurological: General: No focal deficit present. Mental Status: She is alert and oriented to person, place, and time. Mental status is at baseline. Psychiatric: Mood and Affect: Mood normal. Behavior: Behavior normal. Thought Content: Thought content normal. Judgment: Judgment normal. ASSESSMENT AND PLAN: Assessment/Plan Problem List Items Addressed This Visit None Visit Diagnoses Essential hypertension (CMS/HCC) - Primary Relevant Medications hydroCHLOROthiazide (HYDRODiuril) 12.5 MG tablet Limit caffeine. Continue to monitor. Call with any concerns Morbid (severe) obesity due to excess calories (CMS/HCC) continue with portion controlled clean eating and regular physical activity Body mass index (BMI) 37.0-37.9, adult As above Follow up in about 6 months (around 08/25/2024). documented in this encounter [facility] 01-28-2024 History of Presen t illness Narrative Wellness 01/2024 Pap 10/2023 Labs 09/2022 Mamm 01/2024 [employer]- Dr. Arce Repairer Shoe Sticks- Dr. Hui Box Dentist- [facility] Jessa Guzman is a 48 y.o. 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 Had recent colonoscopy and bp elevated. 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 Lost mother 3 years ago so a lot of stress. Denies cp sob edema or palpitations. Bowels and bladder at baseline. SUBJECTIVE: MEDICATIONS: Current Outpatient Medications Medication Instructions ALPRAZolam (XANAX) 0.5 mg, Oral, Nightly PRN amLODIPine (NORVASC) 5 mg, Oral, Daily Levonorgestrel (Mirena, 52 MG,) 20 MCG/DAY intrauterine device Mirena Lidocaine 3 % cream 1 Application, Apply externally, 4 times daily PRN Phentermine-Topiramate (Qsymia) 3.75-23 MG capsule sustained-release 24 hr 1 tablet, Oral, Daily SUMAtriptan (IMITREX) 50 mg, Oral, Once as needed Ubrogepant (Ubrelvy) 100 MG tablet 1 tablet, Oral, Daily PRN valACYclovir (VALTREX) 500 mg, Oral, Daily ALLERGIES: Allergies Allergen Reactions Cefaclor GI intolerance Doxycycline Other Reaction(s): vomiting Sulfamethoxazole Other Reaction(s): Nausea/Vomiting Trimethoprim Other Reaction(s): Nausea/Vomiting Wound Dressing Adhesive Other Reaction(s): Unknown SURGICAL HISTORY: Past Surgical History: Procedure Laterality Date DILATION AND CURETTAGE OF UTERUS FAMILY HISTORY: Family History Adopted: Yes Family history unknown: Yes SOCIAL HISTORY: Social History Tobacco Use Smoking status: Never Smokeless tobacco: Never Substance Use Topics Alcohol use: Yes Alcohol/week: 1.0 standard drink of alcohol Types: 1 Standard drinks or equivalent per week Drug use: Never Depression: Not at risk (07/30/2023) PHQ-2 PHQ-2 Score: 0 REVIEW OF SYMPTOMS: Review of Systems Review of Systems Constitutional: Negative for fatigue, fever and unexpected weight change. HENT: Negative for congestion, dental problem, ear pain, postnasal drip, sinus pain and sore throat. Eyes: Negative for discharge and visual disturbance. Respiratory: Negative for snoring, cough, shortness of breath and wheezing. Cardiovascular: Negative for chest pain and palpitations. Gastrointestinal: Negative for blood in stool, constipation, diarrhea, nausea and vomiting. Genitourinary: Negative for difficulty urinating, dysuria and enuresis. Musculoskeletal: Negative for arthralgias and back pain. Skin: Negative for color change, rash and wound. Allergic/Immunologic: Negative for food allergies. Neurological: Negative for dizziness and headaches. Psychiatric/Behavioral: Negative for self-injury and sleep disturbance. The patient is not nervous/anxious. OBJECTIVE: Visit Vitals BP (!) 140/100 Pulse 95 Ht 5' 7 Wt 241 lb SpO2 98% BMI 37.75 kg/m Smoking Status Never BSA 2.27 m Physical Exam Constitutional: General: pt is not in acute distress. Appearance:Pt is not ill-appearing, toxic-appearing or diaphoretic. HENT: Head: Normocephalic and atraumatic. Right Ear: Tympanic membrane and ear canal normal. There is no impacted cerumen. Left Ear: Tympanic membrane and ear canal normal. There is no impacted cerumen. Nose: No congestion or rhinorrhea. Mouth/Throat: Mouth: Mucous membranes are moist. Pharynx: Oropharynx is clear. No oropharyngeal exudate or posterior oropharyngeal erythema. Eyes: Extraocular Movements: Extraocular movements intact. Conjunctiva/sclera: Conjunctivae normal. Pupils: Pupils are equal, round, and reactive to light. Neck: Vascular: No carotid bruit. Cardiovascular: Rate and Rhythm: Normal rate and regular rhythm. Pulses: Normal pulses. Heart sounds: No murmur heard. No friction rub. No gallop. Pulmonary: Effort: Pulmonary effort is normal. No respiratory distress. Breath sounds: No stridor. No wheezing, rhonchi or rales. Chest: Chest wall: No tenderness. Abdominal: General: Abdomen is flat. Bowel sounds are normal. There is no distension. Palpations: Abdomen is soft. Tenderness: There is no abdominal tenderness. There is no guarding. Musculoskeletal: General: No swelling, tenderness or deformity. Cervical back: No rigidity. Right lower leg: No edema. Left lower leg: No edema. Lymphadenopathy: Cervical: No cervical adenopathy. Skin: General: Skin is warm and dry. Capillary Refill: Capillary refill takes less than 2 seconds. Findings: No rash. Neurological: General: No focal deficit present. Mental Status: Pt is alert and oriented to person, place, and time. Mental status is at baseline. Psychiatric: Mood and Affect: Mood normal. Behavior: Behavior normal. Thought Content: Thought content normal. Judgment: Judgment normal. ASSESSMENT AND PLAN: Assessment/Plan Problem List Items Addressed This Visit None Visit Diagnoses Routine general medical examination at a health care facility - Primary Relevant Orders CBC and differential Comprehensive metabolic panel Lipid panel Microalbumin / creatinine urine ratio TSH Encouraged to return for wellness exam/discussion once yearly. Advised to maintain 150 min of exercise per week with emphasis on good nutrition. Encouraged annual flu vaccine and keeping dtap utd. Discussed importance of adequate sleep and work/recreational balance. Encouraged to call with any questions at any time. Patient voiced understanding. Essential hypertension (CMS/HCC) Relevant Medications amLODIPine (Norvasc) 5 MG tablet Other Relevant Orders CBC and differential Comprehensive metabolic panel Lipid panel Microalbumin / creatinine urine ratio TSH Monitor blood pressure and record. Bring to next apt continue all current care. Amlodipine 5mg daily. Common side effects reviewed. Caregiver stress Relevant Medications ALPRAZolam (Xanax) 0.5 MG tablet Pt aware of the controlled nature of this script and the potential for abuse, addiction, and tolerance. Aware to keep supply secure. Take as directed. Call if there are any concerns. Pt voiced understanding. Discussed how she may benefit from the practices of mindlefullness. Reading resources suggested to her for purchase. Discussed how these techniques reduce stress, as well as improve depression and sleep. Follow up in about 4 weeks (around 02/25/2024) for Recheck. documented in this encounter [facility] 09-28-2020 History of Presen t illness Narrative Explained policies and procedures of an echocardiogram/Doppler study. documented in this encounter [id number] Phone: Evaluation note Diagnosis Fatigue, unspecified type Dizziness and giddiness Palpitations documented in this encounter [id number] Phone: evaluation note* Diagnosis Breast cancer screening by mammogram Routine medical exam Routine general medical examination at a health care facility documented in this encounter [id number] Phone: evaluation note* Diagnosis Breast cancer screening by mammogram documented in this encounter [id number] Phone: evaluation note* Diagnosis Abnormal mammogram Abnormal mammogram, unspecified documented in this encounter [id number] Phone: evalidyxyz noteNo assessment information available [facility] Work Phone: Evaluation note* Diagnosis Routine general medical examination at a health care facility- Primary Essential hypertension (CMS/HCC) Unspecified essential hypertension Caregiver stress [facility] Diagnosis Essential hypertension (CMS/HCC)- Primary Unspecified essential hypertension Morbid (severe) obesity due to excess calories (CMS/HCC) Body mass index (BMI) 37.0-37.9, adult [facility] Diagnosis Right ear pain- Primary Unspecified otalgia [facility] Diagnosis Epigastric pain- Primary Abdominal pain, epigastric Caregiver stress documented in this encounter [facility]* Diagnosis H pylori ulcer- Primary Chronic ulcer of unspecified site [facility]* Diagnosis Well woman exam with routine gynecological exam Routine gynecological examination documented in this encounter [facility] Summary Purpose Family History No Family History Records FoundNo Family History Records FoundNo Family History Records FoundNo Family History Records FoundNo Family History Records FoundNo Family History Records Found Advance Directives Documents on File Type Date Recorded 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 Expl anation ACP-Advance Directive ACP-Power of Automation Developer Documents on File Type Date Recorded 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 Expl anation ACP-Advance Directive ACP-Power of Automation Developer Documents on File Type Date Recorded 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 Expl anation Advance Directives and Living Will Power of Automation Developer Advance Directive Response Recorded Date/ Time Advance Directives No February 1:53pm Reason for Referral Status Reason Specialty Diagnoses / Procedures Referre d By Contact Referred To Contact Closed Cardiology Diagnoses Fatigue, unspecified type Dizziness and giddiness Palpitations Procedures ECHO Complete 2D W [facility] [address] Status Reason Specialty Diagnoses / Procedures Referred By Contact Referred To Contact Closed Radiology Diagnoses Breast cancer screening by mammogram Routine medical exam Procedures KIMBERLY [place] DIGITAL SCREEN BILATERAL [facility] [address] [address] [place] [address] Status Reason Specialty Diagnoses / Procedures Referred By Contact Referred To Contact Authorized Radiology Diagnoses Breast cancer screening by mammogram Procedures KIMBERLY DIGITAL SCREEN W OR WO CAD BILATERAL Rine, Adela L [address] [place] [id number] Status Reason Specialty Diagnoses / Procedures Referred By Contact Referred To Contact Authorized Radiology Diagnoses Abnormal mammogram Procedures KIMBERLY DIGITAL DIAGNOSTIC W OR WO CAD RIGHT Rine, Adela L [address] [place] [id number] Chief Complaint and Reason for Visit Chief Complaint [id number] Chief Complaint Unknown Additional Source Comments INFORMATION SOURCE (unrecogn ized section and content) DATE CREATED AUTHOR 01/17/2020 [facility] DATE CREATED AUTHOR AUTHOR'S ORGANIZ ATION 07/17/2020 [facility] DATE CREATED AUTHOR AUTHOR'S ORGANIZ ATION 02/10/2022 [facility] DATE CREATED AUTHOR AUTHOR'S ORGANIZ ATION 12/22/2023 [facility] DATE CREATED AUTHOR AUTHOR'S ORGANIZ ATION 01/20/2024 Katey Lopez pitbethanie DATE CREATED AUTHOR AUTHOR'S ORGANIZ ATION 08/14/2024 [facility] EPIC Reason for Visit (unrecogniz ed section and content) Status Reason Specialty Diagnoses / Procedures Referre d By Contact Referred To Contact Closed Cardiology Diagnoses Fatigue, unspecified type Dizziness and giddiness Palpitations Procedures ECHO Complete 2D W Doppler W Color Radha Urbano [address] [place] [id number] Status Reason Specialty Diagnoses / Procedures Referred By Contact Referred To Contact Open Radiology Diagnoses Encounter for screening mammogram for malignant neoplasm of breast Procedures HC MAMMO SCREENING INCL CAD IF PERF Radha Urbano [address] [place] [id number] [place] [id number] Status Reason Specialty Diagnoses / Procedures Referre d By Contact Referred To Contact Open Radiology Diagnoses Encounter for screening mammogram for malignant neoplasm of breast Procedures HC MAMMO SCREENING INCL CAD IF PERF Rine, Adela L [address] [place], [place] [id number] [place] [address] Status Reason Specialty Diagnoses / Procedures Referre d By Contact Referred To Contact Open Radiology Diagnoses Other abnormal and inconclusive findings on diagnostic imaging of breast Procedures HC MAMMO DGX UNILATERAL INCL CAD IF PERF Rine, Adela L [address] [place] [id number] [place] [id number] Reason Comments Annual Exam Reason Comments Follow-up Reason Onset Date Comments Medication Question 02/27/2024 ear drops 02/27/2024 Reason Comments Bloated Bloating and extreme gas; started a couple weeks ago and has gotten worse in the past week; accompanied with nausea, vomiting infrequently and discomfortPt denies constipation, diarrhea Reason Onset Date Comments h pylori infection 07/25/2024 Reason Comments Gynecologic Exam Care Teams (unrecognized sec tion and content) Team Status: Inactive Member Role Status Dates Hilary Cruz MD Attending Provider Active Welfare Eligibility Interviewer Relationship Specialty Start Date End Date Radha Urbano PCP - General Nurse Practitioner 08/30/18 Team Status: Inactive Member Role Status Dates Juanito Ventura DO Attending Provider Active Star t: December 18, 2023 End: December 18, 2023 Welfare Eligibility Interviewer Relationship Specialty Start Date End Date Moi Cabrera DO [address] [place] [address] PCP - General Family Medicine 10/10/22 Radha Urbano NP [address] [place] [address] PCP - [employer] 03/04/23 Welfare Eligibility Interviewer Relationship Specialty Start Date End Date Moi Cabrera DO [address] [place] [address] PCP - General Family Medicine 10/10/22 Radha Urbano NP [address] [place] [address] PCP - [employer] 03/04/23 Welfare Eligibility Interviewer Relationship Specialty Start Date End Date Moi Cabrera DO [address] [place], [place] [id number] PCP - General Family Medicine 10/10/22 Radha Urbano 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 [address] [place], [place] [id number] PCP - [employer] 03/04/23 Welfare Eligibility Interviewer Relationship Specialty Start Date End Date Moi Cabrera DO [address] [place] [address] PCP - General Family Medicine 10/10/22 Radha Urbano NP [address] [place] [address] PCP - [employer] 03/04/23 Welfare Eligibility Interviewer Relationship Specialty Start Date End Date Moi Cabrera DO [address] [place] [address] PCP - General Family Medicine 10/10/22 Radha Urbano 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 [address] [place] [address] PCP - [employer] 03/04/23 Welfare Eligibility Interviewer Relationship Specialty Start Date End Date Moi Cabrera DO [address] [place] [address] PCP - General Family Medicine 10/10/22 Radha Urbano NP [address] [place] [address] PCP - [employer] 03/04/23 Welfare Eligibility Interviewer Relationship Specialty Start Date End Date Moi Cabrera DO [address] [place] [address] PCP - General Family Medicine 10/10/22 Radha Urbano NP [address] [place] [address] PCP - [employer] 03/04/23 Welfare Eligibility Interviewer Relationship Specialty Start Date End Date Moi Cabrera DO [address] [place] [address] PCP - General Family Medicine 10/10/22 Radha Urbano NP [address] [place] [address] PCP - [facility] 03/04/23 Welfare Eligibility Interviewer Relationship Specialty Start Date End Date Moi Cabrera DO [address] [place] [address] PCP - General Family Medicine 10/10/22 Welfare Eligibility Interviewer Relationship Specialty Start Date End Date Moi Cabrera DO [address] [place] [address] PCP - General Family Medicine 10/10/22 Goals (unrecognized section and content) Goals may be documented in a n alternate sectionGoals may be documented in an alternate section FOR RECORDS PERTAINING TO PATIENTS [...] BE BASED ON THE PRIMARY CLINICAL RECORDS. [facility]. provides no warranty or guarantee of the accuracy or completeness of information in this document.
[2024-10-24 13:10] LABS: Age Gdln ACOG Testing Note (.); HPV Aptima Negative (Negative); IGP, Aptima HPV, rfx 16/18,45 Note (.)
== END 2024-10-21 19:23 | disposition home or self-care (01) ==
LOC: LAB 19:22
PROVIDERS: Visit Provider Obstetrics & Gynecology
DX: Z01.419 Encounter for gynecological examination (general) (routine) without abnormal findings (principal)
CPT/HCPCS: 87624; 88175